=== PATIENT | female | born 1960 | race Caucasian/White ===

== ENCOUNTER 2019-03-05 15:35 | Emergency (ER) | payer OTHER ==
[~2019-03-05] VITALS: Ht 162.6 cm; Wt 82.1 kg
[~2019-03-05 15:35] MED LIST: DILAUDID PUMP; LISI5 PO; MELO7.5 PO; MODA200 PO; Macrobid 100 M100 MG PO; VENL25 PO; Xalatan2.5 ML BOTHEYES
[2019-03-05] MEDS ORDERED: CLON1 PO (15:48)
[2019-03-05] MEDS ORDERED: DESV50 PO (15:48)
[2019-03-05] MEDS ORDERED: MONT10T PO (15:48)
[2019-03-05] MEDS ORDERED: IBUP600 PO (17:14)
[2019-03-05] MEDS ORDERED: HYDR1TAB94 PO ×2 (17:14→17:15)
[2019-03-05] MEDS ORDERED: CYCL10 PO (17:14)
[2019-03-05] MEDS ORDERED: Norco 5-325 Ta1 EACH PO ×2 (17:16→17:18)
[2019-03-05] MEDS ORDERED: Percocet 5-3251 EACH PO (17:18)
== END 2019-03-05 17:48 | disposition home or self-care (01) ==
LOC: ER 15:35
DX: S16.1XXA Strain of muscle, fascia and tendon at neck level, initial encounter (principal); S80.02XA Contusion of left knee, initial encounter; V89.2XXA Person injured in unspecified motor-vehicle accident, traffic, initial encounter; Z88.0 Allergy status to penicillin; Z88.1 Allergy status to other antibiotic agents; Z79.899 Other long term (current) drug therapy; I10 Essential (primary) hypertension
CPT/HCPCS: 72040; 73030; 99284-25

== ENCOUNTER 2019-03-08 12:45 | Emergency (ER) | payer OTHER ==
[~2019-03-08] VITALS: Ht 162.6 cm; Wt 86.2 kg
[~2019-03-08 12:45] MED LIST changes: +CLON1 PO; +CYCL10 PO; +DESV50 PO; +HYDR1TAB94 PO; +IBUP600 PO; +MONT10T PO; +Norco 5-325 Ta1 EACH PO; +Percocet 5-3251 EACH PO
[2019-03-08 14:46] LABS: Source, Urine Clean Catch
[2019-03-08 14:55] LABS: Appearance, Urine Clear (Clear); Bilirubin, Urine Neg (Neg); Blood, Urine Neg (Neg); Color, Urine Yellow (P-Yellow); Glucose Qualitative, Urine Neg (Neg); Ketones, Urine Neg (Neg); Leukocyte Esterase, Urine 1+ (Neg); Nitrite, Urine Neg (Neg); Protein, Urine Neg (Neg); Specific Gravity, Urine 1.015 (1.003-1.022); Urobilinogen, Urine NORM (Normal); pH, Urine 6.5 (5.0-8.0)
[2019-03-08 15:03] LABS: Bacteria Not Seen /hpf; Red Blood Cells, Urine Not Seen /hpf (0-2); Squamous Epithelial Cells Few /hpf (Few); White Blood Cells, Urine 0-2 /hpf (0-5)
[2019-03-08 15:24] LABS: Base Excess Venous 6.1 mmol/L; Bicarbonate Venous 28.8 mmol/L (24.0-30.0); PCO2 Venous 50.2 mmHg (38-42); PO2 Venous 57.2 mmHg (38-42)
[2019-03-08 15:27] LABS: BASOPHILS ABSOLUTE AUTO 0.05 K/mm3 (0.00-0.23); BASOPHILS PERCENT AUTO 1 % (0-2); EOSINOPHILS PERCENT AUTO 1 % (0-6); Hematocrit 37.7 % (33.0-51.0); IMMATURE GRAN ABSOLUTE AUTO 0.02 K/mm3 (0.00-0.10); IMMATURE GRAN PERCENT AUTO 0 % (0-1); LYMPHOCYTES ABSOLUTE AUTO 2.15 K/mm3 (0.84-5.20); LYMPHOCYTES PERCENT AUTO 30 % (21-46); MONOCYTES ABSOLUTE AUTO 0.53 K/mm3 (0.16-1.47); MONOCYTES PERCENT AUTO 8 % (4-13); Mean Corpuscular HGB 30.5 pg (26.0-34.0); Mean Corpuscular HGB Conc 31.8 g/dL (31.5-36.5); Mean Corpuscular Volume 96 fL (80-100); Mean Platelet Volume 8.9 fL (9.1-12.4); NEUTROPHILS ABSOLUTE AUTO 4.25 K/mm3 (1.96-9.15); NEUTROPHILS PERCENT AUTO 60 % (41-73); Platelet Count 288 K/mm3 (150-400); RDW Standard Deviation 42.2 fL (35.1-46.3); Red Blood Cell Count 3.93 M/mm3 (3.80-5.20)
[2019-03-08 16:23] LABS: Alanine Aminotransfer (ALT/SGP 25 U/L (12-78); Alk Phos 74 U/L (50-136); Anion Gap 4 mmol/L (6-16); Aspartate Aminotrans (AST/SGOT 17 U/L (12-37); Bilirubin, Total 0.6 mg/dL (0.1-1.0); Blood Urea Nitrogen 18 mg/dL (8-24); Bun/Creatinine Ratio 29.8 (12.0-20.0); CO2, Blood 29 mmol/L (21-32); Calcium, Blood 9.6 mg/dL (8.5-10.1); Chloride, Blood 105 mmol/L (98-108); Globulin, Blood 3.9 g/dL (2.2-4.0); Glomerular Filtration Rate >60 (60-); Glucose, Blood 90 mg/dL (70-99); Potassium, Blood 4.2 mmol/L (3.5-5.5); Sodium, Blood 138 mmol/L (136-145); Total Protein, Blood 7.9 g/dL (6.4-8.2)
== END 2019-03-08 17:20 | disposition home or self-care (01) ==
LOC: ER 12:45
PROVIDERS: Emergency Medicine
DX: R55 Syncope and collapse (principal); R06.89 Other abnormalities of breathing; G89.29 Other chronic pain; G47.30 Sleep apnea, unspecified; R40.0 Somnolence; I10 Essential (primary) hypertension; Z88.0 Allergy status to penicillin; Z88.1 Allergy status to other antibiotic agents; Z79.899 Other long term (current) drug therapy
CPT/HCPCS: 36415; 70450; 70491; 71046; 80053; 81001; 82803; 85025; 87086; 93005; 93010; J7030; Q9967

== ENCOUNTER 2020-10-01 07:09 | Day surgery (SDC) | payer OTHER ==
[~2020-10-01] VITALS: Ht 162.6 cm; Wt 90.1 kg
[~2020-10-01 07:09] MED LIST changes: +ACET500 PO; +ASPI81CH PO; +Acetaminophen650 M1 PO; +Aspir 8181 MG PO; +BRIMONIDINE TART5 M2; +CO Q10100 MG PO; +HYDHCL25 PO; +HYDPAM25 PO; +IBU800 M1 PO; +IBUP800 PO; +LATA.005SO BOTHEYES; +LATANOPROST2.5 M1 BOTHEYES; +LISI20 PO; +Loratadine10 MG PO; +MONTELUKAST SOD10 M1 PO; +MORP10S PO; +Mobic15 MG PO; +OMEP20ER PO; +ONDA4 PO; +ONDA8 PO; +PROM25 PO; +Pristiq100 MG PO; +TIMDOROPSO BOTHEYES; +TIMO.25OPS BOTHEYES; +ZOCOR20 MG PO
--- NOTE | 2020-10-01 07:49 | NUR ---
History, Chart, Medications and Allergies reviewed before start of procedure. Patient confirms NPO status and agrees with scheduled surgery. Patient States Post-Procedure ride home has been arranged with her sister, Cecilia.
--- NOTE | 2020-10-01 10:24 | NUR ---
PT C/O SORE THROAT. ABLE TO TOLERATED JUICE. DENIES PAIN. DRESSING TO UMBILICAL AREA D&I. NO DRAINAGE.
--- NOTE | 2020-10-01 10:49 | NUR ---
Dressing to procedure site clean, dry, intact with no visible drainage, swelling, erythema or bruising noted. Discharge instructions reviewed with patient. Patient verbalizes understanding. Copy given to patient to take home. Patient States Post-Procedure ride home has been arranged. Discharged via wheelchair to private car for ride home.
== END 2020-10-01 10:45 | disposition home or self-care (01) ==
LOC: ORSCMMR 07:09 → ORD 07:09
PROVIDERS: Surgery
PROC: 0WUF0JZ Supplement Abdominal Wall with Synthetic Substitute, Open Approach (ICD-10-PCS; principal; 2020-10-01 08:30)
DX: K42.0 Umbilical hernia with obstruction, without gangrene (principal); G47.33 Obstructive sleep apnea (adult) (pediatric); F41.8 Other specified anxiety disorders; I10 Essential (primary) hypertension; E78.5 Hyperlipidemia, unspecified; Z79.82 Long term (current) use of aspirin; Z79.899 Other long term (current) drug therapy
CPT/HCPCS: C1781; J1100; J1885; J2250; J2370; J2405; J2704; J2710; J3010; J7120

== ENCOUNTER → 2021-07-14 | Outpatient (CLI) | payer OTHER ==
[2021-07-19 14:08] LABS: HPV 16 Negative (Negative); HPV 18 Negative (Negative); HPV OTHER HR TYPES Negative (Negative)
== END | disposition home or self-care (01) ==
LOC: LAB SHORT 13:15 → LAB 13:15
PROVIDERS: Nurse Practitioner Family
DX: Z01.419 Encounter for gynecological examination (general) (routine) without abnormal findings (principal)
CPT/HCPCS: 87624; G0123

== ENCOUNTER 2022-01-08 11:16 | Emergency (ER) | payer OTHER ==
[~2022-01-08] VITALS: Ht 162.6 cm; Wt 83.9 kg
[~2022-01-08 11:16] MED LIST changes: -NAPR500EC PO; -ONDA4ODT MM; -PROM12.5S PR; -SULTRIDS PO
[2022-01-08 12:02] LABS: BASOPHILS ABSOLUTE AUTO 0.07 K/mm3 (0.00-0.23); BASOPHILS PERCENT AUTO 1 % (0-2); EOSINOPHILS ABSOLUTE AUTO 0.07 K/mm3 (0.00-0.68); EOSINOPHILS PERCENT AUTO 1 % (0-6); Hematocrit 39.9 % (33.0-51.0); Hemoglobin 13.5 g/dL (11.5-16.0); IMMATURE GRAN ABSOLUTE AUTO 0.03 K/mm3 (0.00-0.10); IMMATURE GRAN PERCENT AUTO 0 % (0-1); LYMPHOCYTES ABSOLUTE AUTO 2.21 K/mm3 (0.84-5.20); LYMPHOCYTES PERCENT AUTO 19 % (21-46); MONOCYTES ABSOLUTE AUTO 0.69 K/mm3 (0.16-1.47); MONOCYTES PERCENT AUTO 6 % (4-13); Mean Corpuscular HGB 31.2 pg (26.0-34.0); Mean Corpuscular HGB Conc 33.8 g/dL (31.5-36.5); Mean Corpuscular Volume 92 fL (80-100); Mean Platelet Volume 8.5 fL (9.1-12.4); NEUTROPHILS ABSOLUTE AUTO 8.69 K/mm3 (1.96-9.15); NEUTROPHILS PERCENT AUTO 74 % (41-73); Platelet Count 349 K/mm3 (150-400); RDW Coefficient Variation 12.1 % (11.7-14.2); RDW Standard Deviation 41.3 fL (35.1-46.3); Red Blood Cell Count 4.33 M/mm3 (3.80-5.20); White Blood Cell Count 11.76 K/mm3 (4.00-11.30)
[2022-01-08 12:19] LABS: Alanine Aminotransfer (ALT/SGP 38 U/L (12-78); Alk Phos 108 U/L (50-136); Anion Gap 7 mmol/L (6-16); Aspartate Aminotrans (AST/SGOT 17 U/L (12-37); Bilirubin, Total 0.4 mg/dL (0.1-1.0); Blood Urea Nitrogen 17 mg/dL (8-24); Bun/Creatinine Ratio 22.2 (12.0-20.0); CO2, Blood 27 mmol/L (21-32); Calcium, Blood 10.2 mg/dL (8.5-10.1); Chloride, Blood 104 mmol/L (98-108); Creatinine, Blood 0.77 mg/dL (0.40-1.00); Globulin, Blood 4.1 g/dL (2.2-4.0); Glomerular Filtration Rate >60 (60-); Glucose, Blood 124 mg/dL (70-99); Magnesium, Blood 2.3 mg/dL (1.6-2.4); Sodium, Blood 138 mmol/L (136-145); Total Protein, Blood 8.1 g/dL (6.4-8.2)
[2022-01-08 13:53] LABS: Source, Urine Clean Catch
[2022-01-08 13:56] LABS: Bilirubin, Urine Neg (Neg); Blood, Urine Neg (Neg); Glucose Qualitative, Urine Neg (Neg); Ketones, Urine 2+ (Neg); Leukocyte Esterase, Urine 1+ (Neg); Nitrite, Urine Neg (Neg); Protein, Urine 3+ (Neg); Specific Gravity, Urine 1.025 (1.003-1.022); Urobilinogen, Urine 1+ (Normal)
[2022-01-08 14:10] LABS: Appearance, Urine Hazy (Clear); Color, Urine Pale Yellow (P-Yellow)
[2022-01-08 14:11] LABS: Amorphous Light (0-Heavy); Bacteria Mod /hpf; Mucus Heavy (0-Heavy); Red Blood Cells, Urine 0-2 /hpf (0-2); Squamous Epithelial Cells Few /hpf (Few)
[2022-01-08 14:12] LABS: Calcium Oxalate Crystals Few /hpf
[2022-01-08] MEDS ORDERED: ONDA4ODT MM (16:30)
[2022-01-08] MEDS ORDERED: SULTRIDS PO (16:30)
[2022-01-08] MEDS ORDERED: NAPR500EC PO (16:32)
== END 2022-01-08 17:04 | disposition home or self-care (01) ==
LOC: ER 11:16
PROVIDERS: Physician Assistant
DX: N12 Tubulo-interstitial nephritis, not specified as acute or chronic (principal); G89.29 Other chronic pain; I10 Essential (primary) hypertension; Z85.41 Personal history of malignant neoplasm of cervix uteri; Z79.899 Other long term (current) drug therapy; Z79.82 Long term (current) use of aspirin; Z88.0 Allergy status to penicillin; Z88.1 Allergy status to other antibiotic agents
CPT/HCPCS: 36415; 74176; 80053; 81001; 83735; 85025; 87086; 96374; 96375; 99284-25; A9270; J1170; J2405

== ENCOUNTER → 2022-01-08 | Outpatient (CLI) | payer OTHER ==
[~2022-01-08] MED LIST changes: +NAPR500EC PO; +ONDA4ODT MM; +PROM12.5S PR; +SULTRIDS PO
== END | disposition home or self-care (01) ==
LOC: LAB SHORT 10:15 → LAB 10:15
DX: N39.0 Urinary tract infection, site not specified (principal)
CPT/HCPCS: 87086

== ENCOUNTER 2022-01-10 11:57 | Emergency (ER) | payer OTHER ==
[~2022-01-10] VITALS: Ht 162.6 cm; Wt 81.7 kg
[~2022-01-10 11:57] MED LIST changes: +NAPR500EC PO; +ONDA4ODT MM; +SULTRIDS PO
[2022-01-10 12:42] LABS: BASOPHILS ABSOLUTE AUTO 0.06 K/mm3 (0.00-0.23); BASOPHILS PERCENT AUTO 1 % (0-2); EOSINOPHILS ABSOLUTE AUTO 0.05 K/mm3 (0.00-0.68); EOSINOPHILS PERCENT AUTO 0 % (0-6); Hematocrit 39.6 % (33.0-51.0); Hemoglobin 13.6 g/dL (11.5-16.0); IMMATURE GRAN ABSOLUTE AUTO 0.02 K/mm3 (0.00-0.10); IMMATURE GRAN PERCENT AUTO 0 % (0-1); LYMPHOCYTES ABSOLUTE AUTO 1.99 K/mm3 (0.84-5.20); LYMPHOCYTES PERCENT AUTO 18 % (21-46); MONOCYTES ABSOLUTE AUTO 0.93 K/mm3 (0.16-1.47); MONOCYTES PERCENT AUTO 8 % (4-13); Mean Corpuscular HGB 31.6 pg (26.0-34.0); Mean Corpuscular HGB Conc 34.3 g/dL (31.5-36.5); Mean Corpuscular Volume 92 fL (80-100); Mean Platelet Volume 8.5 fL (9.1-12.4); NEUTROPHILS ABSOLUTE AUTO 8.34 K/mm3 (1.96-9.15); NEUTROPHILS PERCENT AUTO 73 % (41-73); Platelet Count 350 K/mm3 (150-400); RDW Coefficient Variation 12.3 % (11.7-14.2); RDW Standard Deviation 41.3 fL (35.1-46.3); Red Blood Cell Count 4.31 M/mm3 (3.80-5.20); White Blood Cell Count 11.39 K/mm3 (4.00-11.30)
[2022-01-10 13:01] LABS: Albumin, Blood 3.8 g/dL (3.4-5.0); Bilirubin, Total 0.3 mg/dL (0.1-1.0); Bun/Creatinine Ratio 22.7 (12.0-20.0); Creatinine, Blood 1.1 mg/dL (0.40-1.00); Globulin, Blood 3.8 g/dL (2.2-4.0); Potassium, Blood 4.2 mmol/L (3.5-5.5); Total Protein, Blood 7.6 g/dL (6.4-8.2)
[2022-01-10 13:07] LABS: Influenza A, PCR NEGATIVE (NEGATIVE); Influenza B, PCR NEGATIVE (NEGATIVE); Resp Syncytial Virus, PCR NEGATIVE (NEGATIVE); SARS-Cov-2 (COVID-19) PCR, MMC NEGATIVE (NEGATIVE)
[2022-01-10 14:00] LABS: Source, Urine Clean Catch
[2022-01-10 14:13] LABS: Blood, Urine 1+ (Neg); Glucose Qualitative, Urine Neg (Neg); Ketones, Urine 2+ (Neg); Leukocyte Esterase, Urine 1+ (Neg); Nitrite, Urine Neg (Neg); Protein, Urine 2+ (Neg); Urobilinogen, Urine 2+ (Normal)
[2022-01-10 14:23] LABS: Appearance, Urine Hazy (Clear); Color, Urine Pale Yellow (P-Yellow)
[2022-01-10 14:24] LABS: Bilirubin, Urine 2+ (Neg)
[2022-01-10 14:25] LABS: Bacteria Few /hpf; Squamous Epithelial Cells Few /hpf (Few)
[2022-01-10 14:26] LABS: Mucus Mod (0-Heavy)
[2022-01-10] MEDS ORDERED: PROM12.5S PR (19:06)
== END 2022-01-10 19:24 | disposition home or self-care (01) ==
LOC: ER 11:57
PROVIDERS: Physician Assistant; Student in an Organized Health Care Education/Training Program
DX: M54.50 Low back pain, unspecified (principal); G89.29 Other chronic pain; R79.82 Elevated C-reactive protein (CRP); R11.2 Nausea with vomiting, unspecified; Z88.0 Allergy status to penicillin; Z88.1 Allergy status to other antibiotic agents; Z79.82 Long term (current) use of aspirin; Z79.899 Other long term (current) drug therapy; G47.30 Sleep apnea, unspecified; E78.00 Pure hypercholesterolemia, unspecified; I10 Essential (primary) hypertension
CPT/HCPCS: 0241U; 36415; 72158; 80053; 81001; 83605; 85025; 85651; 86141; 87086; 96374; 99284-25; A9579; J1790

== ENCOUNTER 2022-01-15 11:58 | Observation (INO) | payer OTHER ==
[~2022-01-15] VITALS: Ht 162.6 cm; Wt 77.1 kg
[~2022-01-15 11:58] MED LIST changes: +DESVENLAFAXINE100 MG PO; -HYDPAM25 PO; +MOBIC15 MG PO; +PROM12.5S PR; +ZESTRIL40 M1 PO
[2022-01-15 12:29] LABS: BASOPHILS ABSOLUTE AUTO 0.06 K/mm3 (0.00-0.23); BASOPHILS PERCENT AUTO 1 % (0-2); EOSINOPHILS ABSOLUTE AUTO 0.02 K/mm3 (0.00-0.68); EOSINOPHILS PERCENT AUTO 0 % (0-6); Hemoglobin 14.3 g/dL (11.5-16.0); IMMATURE GRAN ABSOLUTE AUTO 0.06 K/mm3 (0.00-0.10); IMMATURE GRAN PERCENT AUTO 1 % (0-1); LYMPHOCYTES ABSOLUTE AUTO 1.98 K/mm3 (0.84-5.20); LYMPHOCYTES PERCENT AUTO 18 % (21-46); MONOCYTES ABSOLUTE AUTO 0.73 K/mm3 (0.16-1.47); MONOCYTES PERCENT AUTO 6 % (4-13); Mean Corpuscular HGB 31.7 pg (26.0-34.0); Mean Corpuscular HGB Conc 34.9 g/dL (31.5-36.5); Mean Corpuscular Volume 91 fL (80-100); Mean Platelet Volume 8.4 fL (9.1-12.4); NEUTROPHILS ABSOLUTE AUTO 8.48 K/mm3 (1.96-9.15); NEUTROPHILS PERCENT AUTO 75 % (41-73); Platelet Count 445 K/mm3 (150-400); RDW Coefficient Variation 12.2 % (11.7-14.2); RDW Standard Deviation 40.9 fL (35.1-46.3); Red Blood Cell Count 4.51 M/mm3 (3.80-5.20); White Blood Cell Count 11.33 K/mm3 (4.00-11.30)
[2022-01-15 12:53] LABS: Alanine Aminotransfer (ALT/SGP 28 U/L (12-78); Albumin/Globulin Ratio 0.8 (0.8-1.8); Alk Phos 107 U/L (50-136); Anion Gap 10 mmol/L (6-16); Aspartate Aminotrans (AST/SGOT 21 U/L (12-37); Bilirubin, Total 0.4 mg/dL (0.1-1.0); Blood Urea Nitrogen 19 mg/dL (8-24); Bun/Creatinine Ratio 21.2 (12.0-20.0); CO2, Blood 24 mmol/L (21-32); Calcium, Blood 11.1 mg/dL (8.5-10.1); Chloride, Blood 99 mmol/L (98-108); Globulin, Blood 4.9 g/dL (2.2-4.0); Glomerular Filtration Rate >60 (60-); Glucose, Blood 114 mg/dL (70-99); Potassium, Blood 4.3 mmol/L (3.5-5.5); Sodium, Blood 133 mmol/L (136-145); Thyroid Stimulating Hormone 0.285 uIU/mL (0.360-4.800); Total Protein, Blood 8.9 g/dL (6.4-8.2)
[2022-01-15 16:22] LABS: Creatine Kinase MB 2.9 ng/mL (0.0-3.6); Creatine Kinase MB Index 5.9 (0.0-4.0)
--- NOTE | 2022-01-15 18:35 | NUR ---
PATIENT ADMITTED FOR LOWER FLANK PAIN, C/O SEVERE PAIN, N/V. AOX4, INDEPENDENT IN ROOM. NS INFUSING IN LEFT/AC. COMPAZINE GIVEN PRN NAUSEA. LIQUID DIET ORDERED. VITALS STABLE.
--- NOTE | 2022-01-15 23:34 | NUR ---
RESTING QUIETLY. CALL LIGHT IN REACH
--- NOTE | 2022-01-16 05:32 | NUR ---
EXHIBIT ARTIST SUMMARY HAS BEEN RESTING QUIETLY WITH OCCASOINAL INTERRUPTIONS DUE TO PAIN OF BACK. SEE MAR FOR DETAILS WHEN MEDICATED. IVF OF NS INFUSING AT 100 ML/HR. CALL LIGHT IN REACH.
[2022-01-16 08:49] LABS: BASOPHILS ABSOLUTE AUTO 0.03 K/mm3 (0.00-0.23); BASOPHILS PERCENT AUTO 0 % (0-2); EOSINOPHILS PERCENT AUTO 0 % (0-6); Hematocrit 36.7 % (33.0-51.0); Hemoglobin 12.3 g/dL (11.5-16.0); IMMATURE GRAN ABSOLUTE AUTO 0.07 K/mm3 (0.00-0.10); IMMATURE GRAN PERCENT AUTO 1 % (0-1); LYMPHOCYTES ABSOLUTE AUTO 1.97 K/mm3 (0.84-5.20); LYMPHOCYTES PERCENT AUTO 16 % (21-46); MONOCYTES ABSOLUTE AUTO 1.06 K/mm3 (0.16-1.47); MONOCYTES PERCENT AUTO 9 % (4-13); Mean Corpuscular HGB 30.8 pg (26.0-34.0); Mean Corpuscular HGB Conc 33.5 g/dL (31.5-36.5); Mean Corpuscular Volume 92 fL (80-100); Mean Platelet Volume 8.2 fL (9.1-12.4); NEUTROPHILS ABSOLUTE AUTO 9.02 K/mm3 (1.96-9.15); NEUTROPHILS PERCENT AUTO 74 % (41-73); Platelet Count 424 K/mm3 (150-400); RDW Coefficient Variation 12.3 % (11.7-14.2); RDW Standard Deviation 41.6 fL (35.1-46.3); Red Blood Cell Count 3.99 M/mm3 (3.80-5.20); White Blood Cell Count 12.15 K/mm3 (4.00-11.30)
[2022-01-16 09:40] LABS: Alanine Aminotransfer (ALT/SGP 24 U/L (12-78); Albumin, Blood 3.3 g/dL (3.4-5.0); Albumin/Globulin Ratio 0.8 (0.8-1.8); Alk Phos 87 U/L (50-136); Anion Gap 10 mmol/L (6-16); Aspartate Aminotrans (AST/SGOT 15 U/L (12-37); Bilirubin, Total 0.3 mg/dL (0.1-1.0); Blood Urea Nitrogen 22 mg/dL (8-24); Bun/Creatinine Ratio 31.6 (12.0-20.0); CHOL/HDL RATIO 2.9; CO2, Blood 23 mmol/L (21-32); Calcium, Blood 10.3 mg/dL (8.5-10.1); Chloride, Blood 103 mmol/L (98-108); Cholesterol 159 mg/dL (50-200); Globulin, Blood 4.1 g/dL (2.2-4.0); Glomerular Filtration Rate >60 (60-); Glucose, Blood 107 mg/dL (70-99); HDL Cholesterol 54 mg/dL (>39); LDL/HDL RATIO 1.6; Low Density Lipoprotein Chol 85 mg/dL (0-110); Magnesium, Blood 2.1 mg/dL (1.6-2.4); Potassium, Blood 4.3 mmol/L (3.5-5.5); Sodium, Blood 136 mmol/L (136-145); Total Protein, Blood 7.4 g/dL (6.4-8.2); Triglycerides 100 mg/dL (30-160); Very Low Density Lipoprot Chol 20 mg/dL (6-32)
--- NOTE | 2022-01-16 18:17 | NUR ---
Shift Summary Pt has consistent complaints of nausea that are being treated with zofran. Back pain is also present and is now relieving with lidocaine patches and toradol. IV NS @100mls/hr. She is very cooperative and comfortable in bed throughout the day, call light is in reach.
--- NOTE | 2022-01-16 18:51 | NUR ---
SHIFT SUMMARY PT UP TO BATHROOM INDEPENDENTLY. VAGUE ON HOW SHE HAS BEEN TAKING HER MEDS FOR NAUSEA OR PAIN AT HOME. STATES MOST PAIN MID BACK ON EACH SIDE OF HER SPINE. "I THINK ITS WHERE MY KIDNEYS ARE". NAUSEA MINIMAL TODAY AND EATING SMALL AMOUNTS OF CLEAR TO FULL LIQUIDS. LIDOCAINE PATCHES APPLIED TO SITES ON HER BACK TO AID IN PAIN.
[2022-01-17 05:46] LABS: Hematocrit 28.9 % (33.0-51.0); Hemoglobin 9.8 g/dL (11.5-16.0); Mean Corpuscular HGB 31.7 pg (26.0-34.0); Mean Corpuscular HGB Conc 33.9 g/dL (31.5-36.5); Mean Corpuscular Volume 94 fL (80-100); Mean Platelet Volume 8.2 fL (9.1-12.4); Platelet Count 330 K/mm3 (150-400); RDW Coefficient Variation 12.6 % (11.7-14.2); RDW Standard Deviation 43.1 fL (35.1-46.3); Red Blood Cell Count 3.09 M/mm3 (3.80-5.20); White Blood Cell Count 7.88 K/mm3 (4.00-11.30)
[2022-01-17 05:51] LABS: Anion Gap 3 mmol/L (6-16); Blood Urea Nitrogen 21 mg/dL (8-24); Bun/Creatinine Ratio 31.9 (12.0-20.0); CO2, Blood 27 mmol/L (21-32); Calcium, Blood 9.2 mg/dL (8.5-10.1); Chloride, Blood 108 mmol/L (98-108); Creatinine, Blood 0.66 mg/dL (0.40-1.00); Glomerular Filtration Rate >60 (60-); Glucose, Blood 106 mg/dL (70-99); Potassium, Blood 3.9 mmol/L (3.5-5.5); Sodium, Blood 138 mmol/L (136-145)
--- NOTE | 2022-01-17 07:27 | NUR ---
SHIFT SUMMARY PT AOX3. VSS. REPORTS 01/19 MID BACK PAIN, MEDICATED 2X c SCHEDULED TORADOL & 1X c SCHEDULED ROBAXIN, PT STATED PAIN RELIEF. REPORTED ALBERT 08/21, HOWEVER STATED RELIEF AFTER IV TORADOL. DENIES ANY N/V, PT TOLERATED FLUIDS & WAS ABLE TO KEEP LAST NIGHTS DINNER DOWN. ACTIVE BT. REPORTS FEELING "ANXIOUS" ABOUT CURRENT HEALTH SITUATION. CALL LIGHT IN REACH.
[2022-01-17] MEDS ORDERED: REMERON30 M6 PO (13:24)
[2022-01-17] MEDS ORDERED: MORPHINE SULFAT15 M1 PO (13:24)
[2022-01-17] MEDS ORDERED: DORZOLAMIDE-TIM10 ML BOTHEYES (13:27)
[2022-01-17] MEDS ORDERED: ACET500 PO (13:51)
[2022-01-17] MEDS ORDERED: Methocarbamol500 MG PO (13:52)
[2022-01-17] MEDS ORDERED: LIDO700A20 TOP (13:52)
[2022-01-17] MEDS ORDERED: METO5A PO (13:53)
[2022-01-17] MEDS ORDERED: ROXICODONE5 MG PO (13:53)
[2022-01-17] MEDS ORDERED: NAPR500 PO (13:54)
--- NOTE | 2022-01-17 17:15 | NUR ---
DISCHARGE INSTRUCTIONS COMPLETED AND DISCUSSED WITH PT EXPRESSING UNDERSTANDING. SCRIPTS FAXED TO [facility]. TO [facility] VIA W/C.
== END 2022-01-17 17:08 | disposition home or self-care (01) ==
LOC: ER 11:58 → MEDS 11:59 → ER 17:27 → MEDS 17:35
PROVIDERS: Emergency Medicine; ADMIT Internal Medicine
DX: M54.9 Dorsalgia, unspecified (principal); I10 Essential (primary) hypertension; R11.2 Nausea with vomiting, unspecified; R51.9 Headache, unspecified; R94.31 Abnormal electrocardiogram [ECG] [EKG]; Z88.0 Allergy status to penicillin; Z88.1 Allergy status to other antibiotic agents; E78.5 Hyperlipidemia, unspecified; Z97.8 Presence of other specified devices
CPT/HCPCS: 36415; 71045; 76770; 80048; 80053; 80061; 82550; 82553; 83690; 83735; 84439; 84443; 84481; 84484; 85025; 85027; 85651; 86140; 93005; 93010; 93306; 96374; 96375; 99285-25; A9270; J0780; J1170; J1650; J1885; J2405; J2930; J7030

== ENCOUNTER 2022-01-19 21:49 | Inpatient (IN) | payer OTHER ==
[~2022-01-19] VITALS: Ht 167.6 cm; Wt 82.8 kg
[~2022-01-19 21:49] MED LIST changes: +DORZOLAMIDE-TIM10 ML BOTHEYES; +LIDO700A20 TOP; +METO5A PO; +MORPHINE SULFAT15 M1 PO; +Methocarbamol500 MG PO; +NAPR500 PO; +REMERON30 M6 PO; +ROXICODONE5 MG PO
[2022-01-19 23:44] LABS: BASOPHILS ABSOLUTE AUTO 0.08 K/mm3 (0.00-0.23); BASOPHILS PERCENT AUTO 0 % (0-2); EOSINOPHILS ABSOLUTE AUTO 0.04 K/mm3 (0.00-0.68); EOSINOPHILS PERCENT AUTO 0 % (0-6); Hematocrit 28.2 % (33.0-51.0); Hemoglobin 9.6 g/dL (11.5-16.0); IMMATURE GRAN ABSOLUTE AUTO 0.21 K/mm3 (0.00-0.10); IMMATURE GRAN PERCENT AUTO 1 % (0-1); LYMPHOCYTES ABSOLUTE AUTO 2.47 K/mm3 (0.84-5.20); LYMPHOCYTES PERCENT AUTO 14 % (21-46); MONOCYTES ABSOLUTE AUTO 0.81 K/mm3 (0.16-1.47); MONOCYTES PERCENT AUTO 5 % (4-13); Mean Corpuscular Volume 94 fL (80-100); Mean Platelet Volume 9.5 fL (9.1-12.4); NEUTROPHILS ABSOLUTE AUTO 14.35 K/mm3 (1.96-9.15); NEUTROPHILS PERCENT AUTO 80 % (41-73); NRBC ABSOLUTE 0.02 K/mm3 (0.00-0.02); NRBC Auto 0.1 /100 WBC (0.0-0.2); Platelet Count 433 K/mm3 (150-400); RDW Coefficient Variation 12.9 % (11.7-14.2); RDW Standard Deviation 43.5 fL (35.1-46.3); White Blood Cell Count 17.96 K/mm3 (4.00-11.30)
[2022-01-19 23:56] LABS: Alanine Aminotransfer (ALT/SGP 67 U/L (12-78); Albumin, Blood 3.1 g/dL (3.4-5.0); Albumin/Globulin Ratio 0.9 (0.8-1.8); Alk Phos 67 U/L (50-136); Anion Gap 8 mmol/L (6-16); Aspartate Aminotrans (AST/SGOT 53 U/L (12-37); Bilirubin, Total 0.4 mg/dL (0.1-1.0); Blood Urea Nitrogen 55 mg/dL (8-24); CO2, Blood 26 mmol/L (21-32); Calcium, Blood 9.4 mg/dL (8.5-10.1); Chloride, Blood 106 mmol/L (98-108); Globulin, Blood 3.5 g/dL (2.2-4.0); Glomerular Filtration Rate >60 (60-); Glucose, Blood 135 mg/dL (70-99); Magnesium, Blood 2.2 mg/dL (1.6-2.4); Potassium, Blood 4.6 mmol/L (3.5-5.5); Sodium, Blood 140 mmol/L (136-145); Total Protein, Blood 6.6 g/dL (6.4-8.2)
[2022-01-20 00:33] LABS: Influenza A, PCR NEGATIVE (NEGATIVE); Influenza B, PCR NEGATIVE (NEGATIVE); Resp Syncytial Virus, PCR NEGATIVE (NEGATIVE); SARS-Cov-2 (COVID-19) PCR, MMC NEGATIVE (NEGATIVE)
[2022-01-20 02:01] LABS: Source, Urine Clean Catch
[2022-01-20 02:03] LABS: Bilirubin, Urine Neg (Neg); Blood, Urine Neg (Neg); Glucose Qualitative, Urine Neg (Neg); Ketones, Urine Neg (Neg); Leukocyte Esterase, Urine 2+ (Neg); Nitrite, Urine Neg (Neg); Protein, Urine 1+ (Neg); Specific Gravity, Urine 1.015 (1.003-1.022); Urobilinogen, Urine NORM (Normal)
[2022-01-20 02:16] LABS: Appearance, Urine Clear (Clear); Color, Urine Yellow (P-Yellow)
[2022-01-20 02:17] LABS: Bacteria Few /hpf; Red Blood Cells, Urine Not Seen /hpf (0-2); Squamous Epithelial Cells Rare /hpf (Few)
[2022-01-20 05:58] LABS: BASOPHILS ABSOLUTE AUTO 0.03 K/mm3 (0.00-0.23); BASOPHILS PERCENT AUTO 0 % (0-2); EOSINOPHILS ABSOLUTE AUTO 0.04 K/mm3 (0.00-0.68); EOSINOPHILS PERCENT AUTO 0 % (0-6); Hematocrit 22.4 % (33.0-51.0); Hemoglobin 7.4 g/dL (11.5-16.0); IMMATURE GRAN ABSOLUTE AUTO 0.11 K/mm3 (0.00-0.10); IMMATURE GRAN PERCENT AUTO 1 % (0-1); LYMPHOCYTES ABSOLUTE AUTO 3.24 K/mm3 (0.84-5.20); LYMPHOCYTES PERCENT AUTO 25 % (21-46); MONOCYTES ABSOLUTE AUTO 0.74 K/mm3 (0.16-1.47); MONOCYTES PERCENT AUTO 6 % (4-13); Mean Corpuscular HGB 31.2 pg (26.0-34.0); Mean Corpuscular Volume 95 fL (80-100); Mean Platelet Volume 8.4 fL (9.1-12.4); NEUTROPHILS ABSOLUTE AUTO 8.94 K/mm3 (1.96-9.15); NEUTROPHILS PERCENT AUTO 68 % (41-73); Platelet Count 320 K/mm3 (150-400); RDW Coefficient Variation 12.6 % (11.7-14.2); RDW Standard Deviation 42.7 fL (35.1-46.3); Red Blood Cell Count 2.37 M/mm3 (3.80-5.20)
[2022-01-20 06:24] LABS: Anion Gap 5 mmol/L (6-16); Blood Urea Nitrogen 38 mg/dL (8-24); Bun/Creatinine Ratio 74.2 (12.0-20.0); CO2, Blood 28 mmol/L (21-32); Calcium, Blood 8.9 mg/dL (8.5-10.1); Chloride, Blood 108 mmol/L (98-108); Creatinine, Blood 0.51 mg/dL (0.40-1.00); Glomerular Filtration Rate >60 (60-); Glucose, Blood 117 mg/dL (70-99); Potassium, Blood 3.8 mmol/L (3.5-5.5); Sodium, Blood 141 mmol/L (136-145)
[2022-01-20 06:33] LABS: Percent Saturation 41.4 % (15.0-50.0)
--- NOTE | 2022-01-20 06:42 | NUR ---
PM SHIFT SUMMARY PATIENT CAME TO OUR UNIT FROM ED AT 0415. SHE HAD COMPLAINTS OF DIZZYNESS, WEAKNESS AND STATES SHE FELL 4 TIMES AT HOME ON DAY OF ADMISSION. HAS A DILAUDID PUMP FOR CHRONIC LOWER BACK AND ARM PAIN.HER HGB THIS MORNING WAS A7.4, WICH IS DOWN FROM 9.6 ON ADMISSION. SHE ASKED TO BE DNR BUT DOES NOT HAVE ANY ACTUAL ADVANCE DIRECTIVES YET. HER FRIEND IS HER HEALTHCARE PROXY. SHE STATES SHE HAS BEEN IN THE ED 4 TIMES OVER THE LAST 3 WEEKS FOR PAIN AND WEAKNESS.
[2022-01-20 08:33] LABS: Hematocrit 22.9 % (33.0-51.0); Hemoglobin 7.6 g/dL (11.5-16.0)
--- NOTE | 2022-01-20 11:26 | NUR ---
Spiritual Care Visit. Responding to an Advance Directive Info. request. Pt. is awake and in bed. Pt. welcomes my visit. Pt. was displaying evidence of great discomfort, so I offered to return later. Pt. agreed to have me present the material in the AD booklet. Facilitated a life review and rapport was established. Pt. verbalized some relational dysfuction with her family. Listened empathetically. Identified those in her support system. Prayed with pt. Pt. verbalized gratitude for the spiritual care visit.
[2022-01-20 13:36] LABS: Hematocrit 23.4 % (33.0-51.0); Hemoglobin 7.7 g/dL (11.5-16.0)
--- NOTE | 2022-01-20 18:25 | NUR ---
Patient was alert and orient, she stayed in the bed throughout the shift. SHe did not feel comfortable standing or ambulating, stated, "I'm just too weak". Patient was seen by OT/PT but was too weak to participate 100%. Patient complained of pain and did recv PRN Roxicodone. Patient was compliant with medications and had no other complaints. She was continent of bladder and had no BM. A CT scan was done on the Head, Pelvis, and Abdomen. Patient had no further requests at this time. Cont to monitor for her safety.
[2022-01-20 19:08] LABS: Hematocrit 24.1 % (33.0-51.0); Hemoglobin 7.8 g/dL (11.5-16.0)
[2022-01-20 22:58] LABS: Hematocrit 22.6 % (33.0-51.0); Hemoglobin 7.4 g/dL (11.5-16.0)
--- NOTE | 2022-01-21 05:25 | NUR ---
PM SHIFT SUMMARY PATIENT HAD COMPLAINTS OF NAUSEA ONCE DURING SHIFT AND WAS GIVEN ZOFRAN WITH RELIEF OF SYMPTOMS. SHE IS NOW GETTING UP TO THE BEDSIDE COMMODE. SHE DOES NEED TO SIT ON THE EDGE OF THE BED FOR A FEW MINUTES BEFORE RISING TO STAND AND PIVOT. SHE HAS AN IMPLANTED DILAUDID PUMP IN HER LLQ FOR CHRONIC BACK PAIN. SHE DOES MENTION SOME BRIEF RIB PAIN FROM HER FALLS WHEN SHE GETS UP TO USE THE COMMODE. SHE HASN'T STATED NEEDING ANYTHING FOR IT DURING THE SHIFT. BOTH HER CT HEAD AND CT ABD SHOWED NO ACUTE PROCESSES.
[2022-01-21 05:48] LABS: BASOPHILS ABSOLUTE AUTO 0.06 K/mm3 (0.00-0.23); BASOPHILS PERCENT AUTO 1 % (0-2); EOSINOPHILS ABSOLUTE AUTO 0.11 K/mm3 (0.00-0.68); EOSINOPHILS PERCENT AUTO 1 % (0-6); Hematocrit 23.7 % (33.0-51.0); Hemoglobin 7.8 g/dL (11.5-16.0); IMMATURE GRAN ABSOLUTE AUTO 0.07 K/mm3 (0.00-0.10); IMMATURE GRAN PERCENT AUTO 1 % (0-1); LYMPHOCYTES ABSOLUTE AUTO 3.98 K/mm3 (0.84-5.20); LYMPHOCYTES PERCENT AUTO 37 % (21-46); MONOCYTES ABSOLUTE AUTO 0.71 K/mm3 (0.16-1.47); MONOCYTES PERCENT AUTO 7 % (4-13); Mean Corpuscular HGB 31.3 pg (26.0-34.0); Mean Corpuscular HGB Conc 32.9 g/dL (31.5-36.5); Mean Corpuscular Volume 95 fL (80-100); Mean Platelet Volume 8.3 fL (9.1-12.4); NEUTROPHILS ABSOLUTE AUTO 5.88 K/mm3 (1.96-9.15); NEUTROPHILS PERCENT AUTO 54 % (41-73); Platelet Count 387 K/mm3 (150-400); RDW Standard Deviation 44.8 fL (35.1-46.3); Red Blood Cell Count 2.49 M/mm3 (3.80-5.20); White Blood Cell Count 10.81 K/mm3 (4.00-11.30)
[2022-01-21 06:28] LABS: Alanine Aminotransfer (ALT/SGP 94 U/L (12-78); Albumin, Blood 3.2 g/dL (3.4-5.0); Albumin/Globulin Ratio 0.9 (0.8-1.8); Alk Phos 78 U/L (50-136); Anion Gap 7 mmol/L (6-16); Aspartate Aminotrans (AST/SGOT 54 U/L (12-37); Bilirubin, Total 0.3 mg/dL (0.1-1.0); Blood Urea Nitrogen 18 mg/dL (8-24); CO2, Blood 29 mmol/L (21-32); Calcium, Blood 9.7 mg/dL (8.5-10.1); Chloride, Blood 107 mmol/L (98-108); Creatinine, Blood 0.56 mg/dL (0.40-1.00); Globulin, Blood 3.5 g/dL (2.2-4.0); Glomerular Filtration Rate >60 (60-); Glucose, Blood 110 mg/dL (70-99); Potassium, Blood 3.7 mmol/L (3.5-5.5); Sodium, Blood 143 mmol/L (136-145); Total Protein, Blood 6.7 g/dL (6.4-8.2)
[2022-01-21] MEDS ORDERED: REMERON30 M6 (07:20)
[2022-01-21 09:26] LABS: Stool Occult Blood Guaiac 1 Pos (Neg)
--- NOTE | 2022-01-21 18:18 | NUR ---
SHIFT SUMMARY; PATIENT REMAINS IN BED THROUGHOUT THE DAY ONLY GETTING UP TO BATHROOM ONCE AND TO BEDSIDE COMMODE X 2. SHE IS FORGETFUL AND DOES NOT USE CALL LIGHT WHEN SHE HAS WANTS OR NEEDS. HER BED ALARM IS IN PLACE AND GARRET IS FOUND TO BE SETTING UP ON EDGE OF BED WITH ALARM ACTIVATED. ATTEMPTS TO REORIENT HER AND EXPLAIN NECESSITY FOR USING CALL LIGHT ARE MET WITH COOPERATIVE COMMENTS HOWEVER CHIQUITANET IS NOTED TO BE FORGETFUL WITHIN A SHORT TIME AND ACTIVATES ALARM. PATIENT IS NOTED TO SLEEP THIS AFTERNOON FOR AN EXTENDED PERIOD OF TIME. VITAL SIGNS SHOW SLIGHT HYPERTENSION. SABRINAT ABLE TO TAKE HER MEDICATIONS WHOLE WITH WATER. NO DIFFICULTY EATING OR DRINKING. WILL REMAIN AVAILABLE FOR THIS PATIENT FOR ANY WANTS OR NEEDS THAT COME UP PRIOR TO REPORT TO NOC SHIFT RN.
[2022-01-22 05:07] LABS: BASOPHILS ABSOLUTE AUTO 0.04 K/mm3 (0.00-0.23); BASOPHILS PERCENT AUTO 0 % (0-2); EOSINOPHILS ABSOLUTE AUTO 0.14 K/mm3 (0.00-0.68); EOSINOPHILS PERCENT AUTO 1 % (0-6); Hematocrit 21.9 % (33.0-51.0); Hemoglobin 7.1 g/dL (11.5-16.0); IMMATURE GRAN PERCENT AUTO 1 % (0-1); LYMPHOCYTES ABSOLUTE AUTO 3.74 K/mm3 (0.84-5.20); LYMPHOCYTES PERCENT AUTO 36 % (21-46); MONOCYTES ABSOLUTE AUTO 0.82 K/mm3 (0.16-1.47); MONOCYTES PERCENT AUTO 8 % (4-13); Mean Corpuscular HGB 31.1 pg (26.0-34.0); Mean Corpuscular HGB Conc 32.4 g/dL (31.5-36.5); Mean Corpuscular Volume 96 fL (80-100); Mean Platelet Volume 8.3 fL (9.1-12.4); NEUTROPHILS ABSOLUTE AUTO 5.45 K/mm3 (1.96-9.15); NEUTROPHILS PERCENT AUTO 53 % (41-73); NRBC ABSOLUTE 0.03 K/mm3 (0.00-0.02); NRBC Auto 0.3 /100 WBC (0.0-0.2); Platelet Count 377 K/mm3 (150-400); RDW Standard Deviation 44.4 fL (35.1-46.3); Red Blood Cell Count 2.28 M/mm3 (3.80-5.20); White Blood Cell Count 10.29 K/mm3 (4.00-11.30)
[2022-01-22 05:51] LABS: Anion Gap 7 mmol/L (6-16); Blood Urea Nitrogen 13 mg/dL (8-24); Bun/Creatinine Ratio 20.9 (12.0-20.0); CO2, Blood 28 mmol/L (21-32); Calcium, Blood 9.6 mg/dL (8.5-10.1); Chloride, Blood 108 mmol/L (98-108); Creatinine, Blood 0.62 mg/dL (0.40-1.00); Glomerular Filtration Rate >60 (60-); Glucose, Blood 112 mg/dL (70-99); Potassium, Blood 3.5 mmol/L (3.5-5.5); Sodium, Blood 143 mmol/L (136-145)
--- NOTE | 2022-01-22 06:33 | NUR ---
SHIFT SUMMARY: PT REMAINED A/0X3 DISORIENTED TO TIME DURING SHIFT. AMBULATED SEVERAL TIMES TO THE BATHROOM, STEADY ON FEET STANDBY ASSIST. PT CALLS APPROPRIATELY, BED ALARM ACTIVATED, CALL KNAPP IN REACH, BED IN LOWEST POSITION. CONTINUOUS O2 MONITORING DUE TO DECLINING TO WEAR CPAP- O2 STABLE THROUGHOUT SHIFT
[2022-01-22 08:08] LABS: IMMATURE RETIC FRACTION 30.5 % (2.3-16.0); RETIC HGB EQUIVALENT 39.2 pg (28.20-36.60); RETICULOCYTE COUNT PERCENT 3.37 % (0.50-2.50)
[2022-01-22 08:44] LABS: Hematocrit 21.7 % (33.0-51.0); Hemoglobin 7.2 g/dL (11.5-16.0)
[2022-01-22 15:35] LABS: Hematocrit 21.6 % (33.0-51.0); Hemoglobin 7.3 g/dL (11.5-16.0)
--- NOTE | 2022-01-22 17:19 | NUR ---
SHIFT SUMMARY; PATIENT HAD RESTFUL DAY. ONLY GETTING UP FROM BED TO AMBULATE TOO AND FROM BATHROOM. THIS RN AND MONROE GLEASON II HAVE ASKED HER TO GET UP IN CHAIR FOR MEALS WITHOUT MUCH SUCCESS. PATIENT EXPRESSES THAT SHE IS IN TOO MUCH PAIN AFTER HER FALL AT HOME AND CANNOT SIT FOR VERY LONG. SHE IS MEDICATED X 1 WITH OXYCODONE FOR PAIN THAT IS NOT CONTROLLED WITH HER DILAUDID PUMP. CURRENTLY SHE IS RESTING COMFORTABLY EYES CLOSED NADN. SHE RECEIVED AN ULTRASOUND OF HER KIDNEYS AND BLADDER PER ORDER TODAY. PLAN IS FOR HER TO HAVE A GI CONSULT IN THE AM TOMORROW. SHE IS NOTED TO HAVE HARD BLACK TARRY STOOLS AND APPEARS CONSTIPATED. PATIENT IS AO X 4 TODAY, SHE DOES SAY THAT SHE IS HAVING DIFFICULTY WITH HER MEMORY AND FEELS LIKE SHE IS HAVING DIFFICULTY FINDING THE RIGHT WORDS FOR WHAT SHE WANTS TO SAY. WILL REMAIN AVAILABLE FOR THIS PATIENT FOR ANY WANTS OR NEEDS UNTIL HAND OFF AND REPORT AT SHIFT CHANGE.
[2022-01-23 04:44] LABS: BASOPHILS ABSOLUTE AUTO 0.06 K/mm3 (0.00-0.23); BASOPHILS PERCENT AUTO 1 % (0-2); EOSINOPHILS ABSOLUTE AUTO 0.13 K/mm3 (0.00-0.68); EOSINOPHILS PERCENT AUTO 1 % (0-6); Hematocrit 25.2 % (33.0-51.0); Hemoglobin 8.3 g/dL (11.5-16.0); IMMATURE GRAN ABSOLUTE AUTO 0.08 K/mm3 (0.00-0.10); IMMATURE GRAN PERCENT AUTO 1 % (0-1); LYMPHOCYTES ABSOLUTE AUTO 3.38 K/mm3 (0.84-5.20); LYMPHOCYTES PERCENT AUTO 33 % (21-46); MONOCYTES ABSOLUTE AUTO 0.79 K/mm3 (0.16-1.47); MONOCYTES PERCENT AUTO 8 % (4-13); Mean Corpuscular HGB 31.8 pg (26.0-34.0); Mean Corpuscular HGB Conc 32.9 g/dL (31.5-36.5); Mean Corpuscular Volume 97 fL (80-100); Mean Platelet Volume 8.3 fL (9.1-12.4); NEUTROPHILS ABSOLUTE AUTO 5.85 K/mm3 (1.96-9.15); NEUTROPHILS PERCENT AUTO 57 % (41-73); NRBC ABSOLUTE 0.03 K/mm3 (0.00-0.02); NRBC Auto 0.3 /100 WBC (0.0-0.2); Platelet Count 427 K/mm3 (150-400); RDW Coefficient Variation 13.3 % (11.7-14.2); RDW Standard Deviation 44.9 fL (35.1-46.3); Red Blood Cell Count 2.61 M/mm3 (3.80-5.20); White Blood Cell Count 10.29 K/mm3 (4.00-11.30)
--- NOTE | 2022-01-23 04:52 | NUR ---
SHIFT SUMMARY PATIENT PLEASANT ALERT WITH SOME CONFUSION AT TIME C/O PAIN TO HER LEFT RIB CAGE NO SWELLING OR BRUISING NOTED TENDER TO TOUCH PATIENT HAD RECENT FALL AT HOME PRN OXYCODEN ADM WITH RELIEF.PT ABLE TO AMBULATE TO BATHROOM WITH STANDBY ASSISST.SAFETY MAINTAINED CALL LIGHT WITH REACH .
[2022-01-23 05:05] LABS: Anion Gap 7 mmol/L (6-16); Blood Urea Nitrogen 11 mg/dL (8-24); Bun/Creatinine Ratio 16.9 (12.0-20.0); CO2, Blood 28 mmol/L (21-32); Chloride, Blood 107 mmol/L (98-108); Creatinine, Blood 0.65 mg/dL (0.40-1.00); Glomerular Filtration Rate >60 (60-); Glucose, Blood 119 mg/dL (70-99); Potassium, Blood 3.7 mmol/L (3.5-5.5); Sodium, Blood 142 mmol/L (136-145)
--- NOTE | 2022-01-23 18:22 | NUR ---
RECEIVED REPORT FROM OUTGOING NURSE. PATIENT IN BED ALERT AND ORIENTED. PATIENT WAS IN SOME PAIN AND DISCOMFORT THIS MORNING PRN'S PROVIDED (SEE MAR). PATIENT'S PAIN AND DISCOMFORT IMPROVED WITH SCHEDULED LIDOCANE PATCH AND PRN ZOFRAN. PATIENT ALERT AND ORIENTED DURING REPORTING TIME AND CONTINUES TO BE ON TELE AND CONT PULS OX. WILL REPORT TO RN UPON REPORTING TIME.
[2022-01-24 00:43] LABS: Influenza A, PCR NEGATIVE (NEGATIVE); Influenza B, PCR NEGATIVE (NEGATIVE); Resp Syncytial Virus, PCR NEGATIVE (NEGATIVE); SARS-Cov-2 (COVID-19) PCR, MMC NEGATIVE (NEGATIVE)
--- NOTE | 2022-01-24 04:50 | NUR ---
SHIFT SUMMARY PATIENT REMAIN ALERT AND ORIENTED C/O PAIN X 1 TO HER BACK PRN OXYCODEN ADM WITH RELIEF.PT WAS SEEN BY GI DOCTOR THIS NIGHT NEW ORDER ONLY ICE AND WATER,COVID TEST DONE REUSLTS NEGATIVE FOR ENDOSCOPY TODAY PT AWARE.NO ACUTE CHANGE NOTED
[2022-01-24 05:44] LABS: BASOPHILS ABSOLUTE AUTO 0.05 K/mm3 (0.00-0.23); BASOPHILS PERCENT AUTO 1 % (0-2); EOSINOPHILS ABSOLUTE AUTO 0.13 K/mm3 (0.00-0.68); EOSINOPHILS PERCENT AUTO 2 % (0-6); Hematocrit 22.3 % (33.0-51.0); Hemoglobin 7.3 g/dL (11.5-16.0); IMMATURE GRAN ABSOLUTE AUTO 0.07 K/mm3 (0.00-0.10); IMMATURE GRAN PERCENT AUTO 1 % (0-1); LYMPHOCYTES ABSOLUTE AUTO 3.12 K/mm3 (0.84-5.20); LYMPHOCYTES PERCENT AUTO 36 % (21-46); MONOCYTES ABSOLUTE AUTO 0.77 K/mm3 (0.16-1.47); MONOCYTES PERCENT AUTO 9 % (4-13); Mean Corpuscular HGB 32.2 pg (26.0-34.0); Mean Corpuscular HGB Conc 32.7 g/dL (31.5-36.5); Mean Corpuscular Volume 98 fL (80-100); Mean Platelet Volume 8.2 fL (9.1-12.4); NEUTROPHILS ABSOLUTE AUTO 4.59 K/mm3 (1.96-9.15); NEUTROPHILS PERCENT AUTO 53 % (41-73); Platelet Count 425 K/mm3 (150-400); RDW Coefficient Variation 14.2 % (11.7-14.2); RDW Standard Deviation 46.2 fL (35.1-46.3); Red Blood Cell Count 2.27 M/mm3 (3.80-5.20); White Blood Cell Count 8.73 K/mm3 (4.00-11.30)
--- NOTE | 2022-01-24 16:05 | NUR ---
01/24/22 1605 Radha Duran History, Chart, Medications and Allergies reviewed before start of procedure. Patient confirms NPO status and agrees with scheduled surgery. 3-LEAD EKG REVIEWED WITH PHYSICIAN PRIOR TO START OF PROCEDURE. MONITOR INTACT WITH CONTINUOUS PULSE OXIMETRY AND INTERMITTENT BP. PATIENT DETERMINED TO BE ASA APPROPRIATE FOR PROPOFOL SEDATION PRIOR TO START OF PROCEDURE BY
--- NOTE | 2022-01-24 16:39 | NUR ---
PREPROCEDURE PT INTO SDS VIA SNOW FROM [facility]. PT A&O X3. Lungs clear T/O to Auscultation. Patient confirms NPO status and agrees with scheduled surgery.IV ACCESS TO LEFT AC PATENT, FLUSHES WELL AND INFUSING. AFTER REVIEWING CHART PT FITS CRITERIA FOR NURSE SEDATION INSTEAD OF MAC
--- NOTE | 2022-01-24 18:26 | NUR ---
PATIENT ALERT AND ORIENTED X3-4. PATIENT HAD LOWER BACK PAIN TODAY PRN OXY GIVEN WITH RELIEF. PATIENT TAKEN DOWN TO SAME DAY SURGERY AROUND 3PM. PATIENT RETURNED TO ROOM AROUND 5:45PM. SAME DAY UNABLE TO PLACE IV AND STAFF WILL HAVE TO PLACE A POWERGLIDE ON PATIENT FOR TOMORROW'S PROCEDURE. . RECEIVED VERBAL ORDERS FROM PROCEDURE NURSE WHO STATED THAT GI DOC WANTED RN TO PLACE ORDERS FOR PATIENT TO ONLY HAVE WATER AND ICE AFTER MIDNIGHT AND NPO AFTER 11 AM TOMORROW 01/25/2022. ORDERS PLACED. PATIENT IN ROOM EATING DINNER DURING REPORTING TIME.
--- NOTE | 2022-01-25 04:51 | NUR ---
SHIFT SUMMARY ALERT ORIENTED X 3 ABLE TO VOICE NEEDS C/O PAIN TO HER BACK OXYCODEN ADM WITH RELIEF LUNGS SOUND CLEAR EMY NO SOB NOTED CALM MOOD PT ON ICE AND WATER FROM MIDNIGHT AND NPO FROM 11AM TODAY FOR PROCEDURE PT AWARE OF THIS .POWERGLIDE TO BE REPLACED THIS MORNING
[2022-01-25 05:09] LABS: BASOPHILS ABSOLUTE AUTO 0.06 K/mm3 (0.00-0.23); BASOPHILS PERCENT AUTO 1 % (0-2); EOSINOPHILS ABSOLUTE AUTO 0.13 K/mm3 (0.00-0.68); EOSINOPHILS PERCENT AUTO 2 % (0-6); Hematocrit 23.3 % (33.0-51.0); Hemoglobin 7.4 g/dL (11.5-16.0); IMMATURE GRAN ABSOLUTE AUTO 0.03 K/mm3 (0.00-0.10); IMMATURE GRAN PERCENT AUTO 0 % (0-1); LYMPHOCYTES ABSOLUTE AUTO 2.94 K/mm3 (0.84-5.20); LYMPHOCYTES PERCENT AUTO 38 % (21-46); MONOCYTES ABSOLUTE AUTO 0.72 K/mm3 (0.16-1.47); MONOCYTES PERCENT AUTO 9 % (4-13); Mean Corpuscular HGB 31.5 pg (26.0-34.0); Mean Corpuscular HGB Conc 31.8 g/dL (31.5-36.5); Mean Corpuscular Volume 99 fL (80-100); Mean Platelet Volume 8.2 fL (9.1-12.4); NEUTROPHILS ABSOLUTE AUTO 3.97 K/mm3 (1.96-9.15); NEUTROPHILS PERCENT AUTO 50 % (41-73); Platelet Count 409 K/mm3 (150-400); RDW Coefficient Variation 14.7 % (11.7-14.2); RDW Standard Deviation 47.7 fL (35.1-46.3); Red Blood Cell Count 2.35 M/mm3 (3.80-5.20); White Blood Cell Count 7.85 K/mm3 (4.00-11.30)
--- NOTE | 2022-01-25 16:35 | NUR ---
01/25/22 1635 Luis Zheng PATIENT DETERMINED TO BE ASA APPROPRIATE FOR PROPOFOL SEDATION PRIOR TO START OF PROCEDURE BY DR. RIVERA Bite Block Placed 3-LEAD EKG REVIEWED WITH PHYSICIAN PRIOR TO START OF PROCEDURE. Patient to ENDO 1 History, Chart, Medications and Allergies reviewed before start of procedure. MONITOR INTACT WITH CONTINUOUS PULSE OXIMETRY AND INTERMITTENT BP. O2 VIA N/C INTACT THROUGHOUT SEDATION/PROCEDURE.
--- NOTE | 2022-01-25 18:41 | NUR ---
PATIENT IS A&OX4. PT HAD EGD DONE THIS AFTERNOON. PATIENT DENIES ANY PAIN. PT IS NOW RESTING COMFORTABLY IN BED. CALL LIGHT PLACED WITHIN REACH.
--- NOTE | 2022-01-26 04:18 | NUR ---
SHIFT SUMMARY PATIENT AOX4 ABLE TO MAKE NEEDS KNOWN POST EGD NO C/O NAUSEA CALM MOOD C/O PAIN TO HER LOWER BACK X 2 OXYC AND WITH RELIEF IV RIGHT F/A FLUSHING WELL.INDEPENDENT WITH TOILETING NO ACUTE CHANGES NOTED .
[2022-01-26 05:14] LABS: BASOPHILS ABSOLUTE AUTO 0.04 K/mm3 (0.00-0.23); BASOPHILS PERCENT AUTO 1 % (0-2); EOSINOPHILS ABSOLUTE AUTO 0.11 K/mm3 (0.00-0.68); EOSINOPHILS PERCENT AUTO 1 % (0-6); Hematocrit 23.3 % (33.0-51.0); Hemoglobin 7.5 g/dL (11.5-16.0); IMMATURE GRAN ABSOLUTE AUTO 0.03 K/mm3 (0.00-0.10); IMMATURE GRAN PERCENT AUTO 0 % (0-1); LYMPHOCYTES ABSOLUTE AUTO 2.37 K/mm3 (0.84-5.20); LYMPHOCYTES PERCENT AUTO 30 % (21-46); MONOCYTES ABSOLUTE AUTO 0.69 K/mm3 (0.16-1.47); MONOCYTES PERCENT AUTO 9 % (4-13); Mean Corpuscular HGB 31.8 pg (26.0-34.0); Mean Corpuscular HGB Conc 32.2 g/dL (31.5-36.5); Mean Corpuscular Volume 99 fL (80-100); Mean Platelet Volume 8.2 fL (9.1-12.4); NEUTROPHILS PERCENT AUTO 59 % (41-73); Platelet Count 449 K/mm3 (150-400); RDW Coefficient Variation 14.7 % (11.7-14.2); RDW Standard Deviation 49.1 fL (35.1-46.3); Red Blood Cell Count 2.36 M/mm3 (3.80-5.20); White Blood Cell Count 7.84 K/mm3 (4.00-11.30)
[2022-01-26 05:39] LABS: Anion Gap 5 mmol/L (6-16); Blood Urea Nitrogen 15 mg/dL (8-24); Bun/Creatinine Ratio 19.5 (12.0-20.0); CO2, Blood 29 mmol/L (21-32); Calcium, Blood 9.8 mg/dL (8.5-10.1); Chloride, Blood 108 mmol/L (98-108); Creatinine, Blood 0.77 mg/dL (0.40-1.00); Glomerular Filtration Rate >60 (60-); Glucose, Blood 105 mg/dL (70-99); Sodium, Blood 142 mmol/L (136-145)
[2022-01-26 12:35] LABS: Hematocrit 25.8 % (33.0-51.0); Hemoglobin 8.7 g/dL (11.5-16.0)
--- NOTE | 2022-01-26 16:56 | NUR ---
DISCHARGE SUMMARY DISCHARGE INSTRUCTIONS WERE EXPLAINED TO PATIENT. ALL QUESTIONS ANSWERED. PT INSTRUCTED TO GO TO FOLLOW UP APPOINTMENT THAT WAS MADE AND WAS TOLD TO CALL IF SHE CANNOT MAKE IT OR NEEDS TO RESCHEDULE. HOME HEALTH WILL FOLLOW UP WITH PATIENT. PT WAS WHEELED OUT VIA WHEELCHAIR W/ PRIMARY NURSE.
== END 2022-01-26 16:44 | disposition home health service (06) | DRG 379 ==
LOC: ER 21:49 → MEDS 21:50
PROVIDERS: Family Medicine; Hospitalist; Internal Medicine Gastroenterology; Student in an Organized Health Care Education/Training Program; ADMIT Family Medicine
PROC: 0DB68ZZ Excision of Stomach, Via Natural or Artificial Opening Endoscopic (ICD-10-PCS; principal; 2022-01-25 16:15)
PROC: 0DB68ZX Excision of Stomach, Via Natural or Artificial Opening Endoscopic, Diagnostic (ICD-10-PCS; 2022-01-25 16:15)
DX: K25.0 Acute gastric ulcer with hemorrhage (principal); Z20.822 Contact with and (suspected) exposure to COVID-19; Z66 Do not resuscitate; D64.9 Anemia, unspecified; K59.00 Constipation, unspecified; D72.829 Elevated white blood cell count, unspecified; R91.1 Solitary pulmonary nodule; H40.9 Unspecified glaucoma; J30.9 Allergic rhinitis, unspecified; F41.1 Generalized anxiety disorder; G47.33 Obstructive sleep apnea (adult) (pediatric); F32.A Depression, unspecified; E11.9 Type 2 diabetes mellitus without complications; K21.9 Gastro-esophageal reflux disease without esophagitis; M54.9 Dorsalgia, unspecified; G89.29 Other chronic pain; I10 Essential (primary) hypertension; E78.5 Hyperlipidemia, unspecified; Z88.0 Allergy status to penicillin; Z88.1 Allergy status to other antibiotic agents; Z79.82 Long term (current) use of aspirin; Z79.899 Other long term (current) drug therapy; Z98.51 Tubal ligation status; Z98.890 Other specified postprocedural states; Z85.41 Personal history of malignant neoplasm of cervix uteri
CPT/HCPCS: 0241U; 36415; 70470; 71045; 71260; 74177; 76770; 80048; 80053; 81001; 82270; 82550; 82607; 82728; 82746; 83010; 83540; 83550; 83605; 83615; 83735; 83880; 84145; 84484; 85014; 85018; 85025; 85045; 87040; 87086; 88305; 88341; 88342; 93005; 93010; 94762; 96365; 96366; 96372; 97110; 97116; 97161; 97166; 97530; 97535; 99285-25; A9270; G0378; J1650; J1956; J2405; J2704; J7120; Q9967

== ENCOUNTER 2022-01-31 09:15 | Inpatient (IN) | payer OTHER ==
[~2022-01-31] VITALS: Ht 162.6 cm; Wt 81.7 kg
[~2022-01-31 09:15] MED LIST changes: +REMERON30 M6
[2022-01-31 10:29] LABS: BASOPHILS ABSOLUTE AUTO 0.03 K/mm3 (0.00-0.23); BASOPHILS PERCENT AUTO 0 % (0-2); EOSINOPHILS ABSOLUTE AUTO 0.01 K/mm3 (0.00-0.68); EOSINOPHILS PERCENT AUTO 0 % (0-6); Hematocrit 25.6 % (33.0-51.0); Hemoglobin 8.3 g/dL (11.5-16.0); IMMATURE GRAN ABSOLUTE AUTO 0.02 K/mm3 (0.00-0.10); IMMATURE GRAN PERCENT AUTO 0 % (0-1); LYMPHOCYTES ABSOLUTE AUTO 0.62 K/mm3 (0.84-5.20); LYMPHOCYTES PERCENT AUTO 8 % (21-46); MONOCYTES ABSOLUTE AUTO 0.43 K/mm3 (0.16-1.47); MONOCYTES PERCENT AUTO 6 % (4-13); Mean Corpuscular HGB 31.2 pg (26.0-34.0); Mean Corpuscular HGB Conc 32.4 g/dL (31.5-36.5); Mean Corpuscular Volume 96 fL (80-100); Mean Platelet Volume 8.3 fL (9.1-12.4); NEUTROPHILS ABSOLUTE AUTO 6.28 K/mm3 (1.96-9.15); NEUTROPHILS PERCENT AUTO 85 % (41-73); Platelet Count 385 K/mm3 (150-400); RDW Coefficient Variation 14.3 % (11.7-14.2); RDW Standard Deviation 49.6 fL (35.1-46.3); Red Blood Cell Count 2.66 M/mm3 (3.80-5.20); White Blood Cell Count 7.39 K/mm3 (4.00-11.30)
[2022-01-31 10:47] LABS: Alanine Aminotransfer (ALT/SGP 330 U/L (12-78); Albumin, Blood 3.6 g/dL (3.4-5.0); Albumin/Globulin Ratio 1.2 (0.8-1.8); Alk Phos 364 U/L (50-136); Anion Gap 7 mmol/L (6-16); Aspartate Aminotrans (AST/SGOT 372 U/L (12-37); Bilirubin, Total 1.2 mg/dL (0.1-1.0); Blood Urea Nitrogen 21 mg/dL (8-24); Bun/Creatinine Ratio 34.7 (12.0-20.0); CO2, Blood 27 mmol/L (21-32); Calcium, Blood 9.7 mg/dL (8.5-10.1); Chloride, Blood 108 mmol/L (98-108); Creatinine, Blood 0.61 mg/dL (0.40-1.00); Globulin, Blood 3.1 g/dL (2.2-4.0); Glomerular Filtration Rate >60 (60-); Glucose, Blood 122 mg/dL (70-99); Potassium, Blood 4.2 mmol/L (3.5-5.5); Sodium, Blood 142 mmol/L (136-145); Total Protein, Blood 6.7 g/dL (6.4-8.2)
[2022-01-31] MEDS ORDERED: LATANOPROST2.5 M3 BOTHEYES (18:32)
[2022-01-31] MEDS ORDERED: Simvastatin20 MG (18:32)
[2022-01-31] MEDS ORDERED: Alphagan P5 ML BOTHEYES (18:50)
[2022-01-31] MEDS ORDERED: SENN187 PO (18:51)
[2022-01-31] MEDS ORDERED: LUTEIN20 MG PO (18:52)
[2022-01-31] MEDS ORDERED: SIME80CH PO (18:53)
[2022-01-31] MEDS ORDERED: Preservision A1 EACH PO (18:54)
[2022-01-31] MEDS ORDERED: TRIDERM28.4 GM TOP (21:56)
[2022-01-31] MEDS ORDERED: MORPHINE SULFAT15 M1 PO (21:57)
[2022-01-31] MEDS ORDERED: MODAFINIL200 MG PO (21:58)
[2022-01-31] MEDS ORDERED: MIRT15 PO (21:59)
[2022-01-31] MEDS ORDERED: Methocarbamol500 MG PO (22:01)
[2022-01-31] MEDS ORDERED: MOBIC15 MG PO (22:01)
[2022-01-31] MEDS ORDERED: Hydroxyzine HCl25 MG PO (22:03)
[2022-02-01 05:07] LABS: BASOPHILS ABSOLUTE AUTO 0.03 K/mm3 (0.00-0.23); BASOPHILS PERCENT AUTO 0 % (0-2); EOSINOPHILS ABSOLUTE AUTO 0.01 K/mm3 (0.00-0.68); EOSINOPHILS PERCENT AUTO 0 % (0-6); Hematocrit 24.3 % (33.0-51.0); Hemoglobin 7.7 g/dL (11.5-16.0); IMMATURE GRAN ABSOLUTE AUTO 0.02 K/mm3 (0.00-0.10); IMMATURE GRAN PERCENT AUTO 0 % (0-1); LYMPHOCYTES ABSOLUTE AUTO 1.41 K/mm3 (0.84-5.20); LYMPHOCYTES PERCENT AUTO 17 % (21-46); MONOCYTES ABSOLUTE AUTO 0.58 K/mm3 (0.16-1.47); MONOCYTES PERCENT AUTO 7 % (4-13); Mean Corpuscular HGB Conc 31.7 g/dL (31.5-36.5); Mean Corpuscular Volume 98 fL (80-100); Mean Platelet Volume 8.6 fL (9.1-12.4); NEUTROPHILS ABSOLUTE AUTO 6.29 K/mm3 (1.96-9.15); NEUTROPHILS PERCENT AUTO 75 % (41-73); Platelet Count 369 K/mm3 (150-400); RDW Coefficient Variation 14.3 % (11.7-14.2); RDW Standard Deviation 51.1 fL (35.1-46.3); Red Blood Cell Count 2.48 M/mm3 (3.80-5.20); White Blood Cell Count 8.34 K/mm3 (4.00-11.30)
--- NOTE | 2022-02-01 05:07 | NUR ---
SHIFT SUMMARY A/OX4, IND IN ROOM. C/O EPIGASTRIC PAIN AND NAUSEA. MEDICATED PER EMAR. INDWELLING DIALUDID PAIN PUMP, AWARE. VSS, NO ACUTE CHANGES AT THIS TIME. BED IN LOWEST POSITION WITH CALL LIGHT IN REACH. WILL CONTINUE TO MONITOR AND REPORT TO ONCOMING RN.
[2022-02-01 06:05] LABS: Alanine Aminotransfer (ALT/SGP 239 U/L (12-78); Albumin, Blood 3.2 g/dL (3.4-5.0); Alk Phos 308 U/L (50-136); Anion Gap 7 mmol/L (6-16); Aspartate Aminotrans (AST/SGOT 159 U/L (12-37); Bilirubin, Total 0.4 mg/dL (0.1-1.0); Blood Urea Nitrogen 13 mg/dL (8-24); CO2, Blood 27 mmol/L (21-32); Calcium, Blood 9.3 mg/dL (8.5-10.1); Chloride, Blood 107 mmol/L (98-108); Creatinine, Blood 0.65 mg/dL (0.40-1.00); Globulin, Blood 3.2 g/dL (2.2-4.0); Glomerular Filtration Rate >60 (60-); Glucose, Blood 104 mg/dL (70-99); Magnesium, Blood 1.9 mg/dL (1.6-2.4); Potassium, Blood 3.8 mmol/L (3.5-5.5); Sodium, Blood 141 mmol/L (136-145); Total Protein, Blood 6.4 g/dL (6.4-8.2)
[2022-02-01 06:40] LABS: International Normalized Ratio 1.07; Prothrombin Time Results 11.2 Sec (9.7-11.5)
[2022-02-01 09:33] LABS: Cholesterol 151 mg/dL (50-200); HDL Cholesterol 50 mg/dL (>39); LDL/HDL RATIO 1.6; Low Density Lipoprotein Chol 79 mg/dL (0-110); Triglycerides 111 mg/dL (30-160); Very Low Density Lipoprot Chol 22 mg/dL (6-32)
--- NOTE | 2022-02-01 18:47 | NUR ---
SUMMARY- PT A/O X4, INDEPENDANT TO BATHROOM. VOIDS WITH PERIODS OF STRESS INCONT. IVF LR AT 150/ML HR. PT HAVING ABD PAIN. MEDICATED WITH IV DILAUDID WITH GOOD EFFECT. PT NAUSEATED WITH NARC AND ANTIEMETIC WITH DILAUDID EFFECTIVE. DR ZHONG AT BEDSIDE TO EVAL PT THIS PM, ORDER FOR CLEAR LIQ DIET. HAD BM TODAY. PT STATES LESS DARK AND MORE BROWN, SOFT. LOW, DR DICKEY AWARE (CALLED THIS AM 0930). VSS. NO EVIDENCE OF ACTIVE GI BLEED WITH PRIOR ADMISSION.
[2022-02-02 05:24] LABS: BASOPHILS ABSOLUTE AUTO 0.03 K/mm3 (0.00-0.23); BASOPHILS PERCENT AUTO 0 % (0-2); EOSINOPHILS ABSOLUTE AUTO 0.02 K/mm3 (0.00-0.68); EOSINOPHILS PERCENT AUTO 0 % (0-6); Hematocrit 19.3 % (33.0-51.0); Hemoglobin 6.2 g/dL (11.5-16.0); IMMATURE GRAN ABSOLUTE AUTO 0.03 K/mm3 (0.00-0.10); IMMATURE GRAN PERCENT AUTO 0 % (0-1); LYMPHOCYTES ABSOLUTE AUTO 1.46 K/mm3 (0.84-5.20); LYMPHOCYTES PERCENT AUTO 20 % (21-46); MONOCYTES ABSOLUTE AUTO 0.75 K/mm3 (0.16-1.47); MONOCYTES PERCENT AUTO 10 % (4-13); Mean Corpuscular HGB 31.3 pg (26.0-34.0); Mean Corpuscular HGB Conc 32.1 g/dL (31.5-36.5); Mean Corpuscular Volume 98 fL (80-100); Mean Platelet Volume 8.4 fL (9.1-12.4); NEUTROPHILS ABSOLUTE AUTO 5.07 K/mm3 (1.96-9.15); NEUTROPHILS PERCENT AUTO 69 % (41-73); Platelet Count 256 K/mm3 (150-400); RDW Standard Deviation 48.9 fL (35.1-46.3); Red Blood Cell Count 1.98 M/mm3 (3.80-5.20); White Blood Cell Count 7.36 K/mm3 (4.00-11.30)
[2022-02-02 05:52] LABS: Alanine Aminotransfer (ALT/SGP 119 U/L (12-78); Albumin, Blood 2.5 g/dL (3.4-5.0); Albumin/Globulin Ratio 0.9 (0.8-1.8); Alk Phos 189 U/L (50-136); Anion Gap 4 mmol/L (6-16); Aspartate Aminotrans (AST/SGOT 50 U/L (12-37); Bilirubin, Total 0.5 mg/dL (0.1-1.0); Blood Urea Nitrogen 7 mg/dL (8-24); Bun/Creatinine Ratio 11.9 (12.0-20.0); CO2, Blood 30 mmol/L (21-32); Calcium, Blood 8.8 mg/dL (8.5-10.1); Chloride, Blood 106 mmol/L (98-108); Creatinine, Blood 0.59 mg/dL (0.40-1.00); Globulin, Blood 2.8 g/dL (2.2-4.0); Glomerular Filtration Rate >60 (60-); Glucose, Blood 98 mg/dL (70-99); Potassium, Blood 3.5 mmol/L (3.5-5.5); Sodium, Blood 140 mmol/L (136-145); Total Protein, Blood 5.3 g/dL (6.4-8.2)
--- NOTE | 2022-02-02 06:06 | NUR ---
PT IS A/OX4. SHE HAS BEEN INDEPENDENT IN THE ROOM. RA. NO TELE. CONSULT W/ DR ZHONG YESTERDAY *SEE NOTE*. PT DOES HAVE NEW ACUTE PAIN AND HAS Q6 PRN 1-2 MG OF DILAUDID. SHE HAS THE CALL LIGHT WITHIN REACH AND WE'LL CONTINUE TO MONITOR.
--- NOTE | 2022-02-02 08:00 | NUR ---
pt laying in bed awake a/ox3, pleasant and cooperative with care, follows commands well, states she is a bit foggy, pain is ok as she just had pain meds, lungs are dim t/o, resp even and unlabored, no cough noted, hrr, all ext seem puffy but she states thats her baseline, ppp+2, cap refill <3sec, vs stable, afebrile, piv to rfa and power glide to cristobal, sites are clear and patent, btx4, abd flat soft nontender, voids without diff, skin pale, c/d/i, maew, up ad henrique in room, soraida, call light in reach.
--- NOTE | 2022-02-02 11:38 | NUR ---
pt left via wheelchair for mri.
[2022-02-02 13:21] LABS: Hematocrit 22.5 % (33.0-51.0); Hemoglobin 7.4 g/dL (11.5-16.0)
[2022-02-02 17:06] LABS: Hematocrit 23.6 % (33.0-51.0); Hemoglobin 7.8 g/dL (11.5-16.0)
--- NOTE | 2022-02-02 18:17 | NUR ---
pt has been up ad henrique in room, medicated for pain once, Dr. Yang in to see her, said she can have clear liquids, probably not going to do surgery, for a few days per pt. is tolerating well. call light in reach.
[2022-02-03 05:37] LABS: BASOPHILS ABSOLUTE AUTO 0.02 K/mm3 (0.00-0.23); BASOPHILS PERCENT AUTO 0 % (0-2); EOSINOPHILS ABSOLUTE AUTO 0.07 K/mm3 (0.00-0.68); EOSINOPHILS PERCENT AUTO 1 % (0-6); Hematocrit 20.5 % (33.0-51.0); Hemoglobin 6.6 g/dL (11.5-16.0); IMMATURE GRAN ABSOLUTE AUTO 0.04 K/mm3 (0.00-0.10); IMMATURE GRAN PERCENT AUTO 1 % (0-1); LYMPHOCYTES ABSOLUTE AUTO 1.24 K/mm3 (0.84-5.20); LYMPHOCYTES PERCENT AUTO 20 % (21-46); MONOCYTES ABSOLUTE AUTO 0.59 K/mm3 (0.16-1.47); MONOCYTES PERCENT AUTO 10 % (4-13); Mean Corpuscular HGB 30.3 pg (26.0-34.0); Mean Corpuscular HGB Conc 32.2 g/dL (31.5-36.5); Mean Corpuscular Volume 94 fL (80-100); Mean Platelet Volume 8.5 fL (9.1-12.4); NEUTROPHILS PERCENT AUTO 68 % (41-73); Platelet Count 192 K/mm3 (150-400); RDW Coefficient Variation 15.4 % (11.7-14.2); Red Blood Cell Count 2.18 M/mm3 (3.80-5.20); White Blood Cell Count 6.16 K/mm3 (4.00-11.30)
--- NOTE | 2022-02-03 06:00 | NUR ---
SHIFT SUMMARY: PT IS A/OX4. INDEPENDENT IN ROOM. PT WAS MEDICATED X2 W/ PRN 1MG OF DILAUDID. PT HAS IMPLANTED PAIN PUMP WELL. POWERGLIDE IN FIDELIA INTACT AND INFUSING LR @ 150/INTERMITTENT ABX. SHE IS RA & NO TELE. ABDOMEN IS TENDER TO PALPATION. PT HAS MULTIPLE EYE DROPS IN ROOM. CALL LIGHT IS WITHIN REACH AND WE'LL CONTINUE TO MONITOR.
[2022-02-03 06:01] LABS: Alanine Aminotransfer (ALT/SGP 86 U/L (12-78); Albumin, Blood 2.4 g/dL (3.4-5.0); Albumin/Globulin Ratio 0.8 (0.8-1.8); Alk Phos 154 U/L (50-136); Anion Gap 7 mmol/L (6-16); Aspartate Aminotrans (AST/SGOT 25 U/L (12-37); Bilirubin, Total 0.5 mg/dL (0.1-1.0); Blood Urea Nitrogen 7 mg/dL (8-24); Bun/Creatinine Ratio 12.6 (12.0-20.0); CO2, Blood 29 mmol/L (21-32); Calcium, Blood 8.9 mg/dL (8.5-10.1); Chloride, Blood 106 mmol/L (98-108); Creatinine, Blood 0.56 mg/dL (0.40-1.00); Glomerular Filtration Rate >60 (60-); Glucose, Blood 119 mg/dL (70-99); Potassium, Blood 3.1 mmol/L (3.5-5.5); Sodium, Blood 142 mmol/L (136-145); Total Protein, Blood 5.4 g/dL (6.4-8.2)
[2022-02-03 12:52] LABS: Hematocrit 24.8 % (33.0-51.0); Hemoglobin 8.2 g/dL (11.5-16.0)
--- NOTE | 2022-02-03 14:50 | NUR ---
TRANSFUSED 1 UNIT PRBCS THIS AM, NO REACTIONS OBSERVED, VSS. LABS DRAWN FROM POWERGLIDE TO RECHECK H/H. PT NPO THIS MORNING, AND LEFT FOR SURGERY AT 1400.
[2022-02-03 16:55] LABS: Hematocrit 24.7 % (33.0-51.0); Hemoglobin 8.2 g/dL (11.5-16.0)
--- NOTE | 2022-02-03 18:05 | NUR ---
END OF SHIFT SUMMARY: PT ARRIVED FROM PACU AT 1630, REPORT RECEIVED FROM EVELIO MEDINA. PT ON 3L/O2, LR INFUSING. 4X LAP SITES ON ABD, COVERED WITH STERI-STRIPS CDI. VITALS STABLE, SYSTOLIC BP >170, PRN LABETALOL GIVEN, UNEFFECTIVE. CALLED , LEFT REGARDING PTS PO LISINOPRIL. TITRATING PATIENTS OXYGEN DOWN TO 1.5 LPM. PATIENT FEELING SEDATED, SBA TO BSC. VOIDED U/O 100ML. NOTHING BY MOUTH YET, PT WILL TRY LIQUIDS AT DINNER.
[2022-02-04 05:25] LABS: BASOPHILS ABSOLUTE AUTO 0.01 K/mm3 (0.00-0.23); BASOPHILS PERCENT AUTO 0 % (0-2); EOSINOPHILS PERCENT AUTO 0 % (0-6); Hematocrit 24.1 % (33.0-51.0); IMMATURE GRAN ABSOLUTE AUTO 0.03 K/mm3 (0.00-0.10); IMMATURE GRAN PERCENT AUTO 1 % (0-1); LYMPHOCYTES ABSOLUTE AUTO 0.56 K/mm3 (0.84-5.20); LYMPHOCYTES PERCENT AUTO 10 % (21-46); MONOCYTES ABSOLUTE AUTO 0.45 K/mm3 (0.16-1.47); MONOCYTES PERCENT AUTO 8 % (4-13); Mean Corpuscular HGB 30.3 pg (26.0-34.0); Mean Corpuscular HGB Conc 33.2 g/dL (31.5-36.5); Mean Corpuscular Volume 91 fL (80-100); Mean Platelet Volume 8.7 fL (9.1-12.4); NEUTROPHILS PERCENT AUTO 82 % (41-73); Platelet Count 242 K/mm3 (150-400); RDW Coefficient Variation 14.9 % (11.7-14.2); RDW Standard Deviation 49.6 fL (35.1-46.3); Red Blood Cell Count 2.64 M/mm3 (3.80-5.20); White Blood Cell Count 5.85 K/mm3 (4.00-11.30)
[2022-02-04 05:51] LABS: Alanine Aminotransfer (ALT/SGP 77 U/L (12-78); Albumin, Blood 2.5 g/dL (3.4-5.0); Albumin/Globulin Ratio 0.8 (0.8-1.8); Alk Phos 168 U/L (50-136); Anion Gap 5 mmol/L (6-16); Aspartate Aminotrans (AST/SGOT 27 U/L (12-37); Bilirubin, Total 0.4 mg/dL (0.1-1.0); Blood Urea Nitrogen 9 mg/dL (8-24); Bun/Creatinine Ratio 15.3 (12.0-20.0); CO2, Blood 29 mmol/L (21-32); Chloride, Blood 105 mmol/L (98-108); Creatinine, Blood 0.59 mg/dL (0.40-1.00); Globulin, Blood 3.3 g/dL (2.2-4.0); Glomerular Filtration Rate >60 (60-); Glucose, Blood 130 mg/dL (70-99); Potassium, Blood 3.9 mmol/L (3.5-5.5); Sodium, Blood 139 mmol/L (136-145); Total Protein, Blood 5.8 g/dL (6.4-8.2)
--- NOTE | 2022-02-04 06:09 | NUR ---
PT IS A/OX4. PT IS TOLERATING FULL LIQUID DIET. RA. NO TELE. SBA TO BR; CAN AMBULATE TO BSC INDEPENDENTLY. HER 0500 HGB WAS 8.0 DOWN FROM 8.2. LAP SITES ARE INTACT; PT HAD NO C/O OF PAIN AROUND THE SURGICAL SITES. PT USES CALL LIGHT FOR NEEDS AND WE'LL CONTINUE TO MONITOR.
--- NOTE | 2022-02-04 18:31 | NUR ---
END OF SHIFT SUMMARY: PT OOB, MOVING INDEPEDENTLY IN ROOM. IV FLUIDS D/C, PO MEDS, IV PAIN MEDS D/C'd. 4XLAPS SITES ON ABD, COVERED W/ STERI-STRIPS CDI, SCANT DRIED BLOOD NOTED AT SITES. TOLERATING ORAL INTAKE, ADVANCED TO REGULAR DIET. VSS.
--- NOTE | 2022-02-05 03:52 | NUR ---
SHIFT SUMMARY NO ACUTE CHANGES TO PT CONDITION. PT CONTINUES TO HAVE BACK PAIN AND IS BEING MEDICATED EVERY 4 HOURS FOR PAIN. PT HAD GALLBLADDER SURGERY ON SUNDAY. LAP SITES X 4 ARE CDI. CALL LIGHT IS WITHIN HER REACH. WILL CONTINUE TO MONITOR.
[2022-02-05 05:46] LABS: Hematocrit 24.6 % (33.0-51.0); Mean Corpuscular HGB 30.7 pg (26.0-34.0); Mean Corpuscular HGB Conc 32.5 g/dL (31.5-36.5); Mean Corpuscular Volume 94 fL (80-100); Mean Platelet Volume 8.7 fL (9.1-12.4); Platelet Count 266 K/mm3 (150-400); RDW Coefficient Variation 14.8 % (11.7-14.2); RDW Standard Deviation 50.6 fL (35.1-46.3); Red Blood Cell Count 2.61 M/mm3 (3.80-5.20)
[2022-02-05] MEDS ORDERED: FERSU300 PO (11:03)
--- NOTE | 2022-02-05 13:28 | NUR ---
DISCHARGE SUMMARY: PT DISCHARGED HOME TODAY W/REFERRAL TO HH SERVICES. PT EDUCATED ON MEDICATIONS, DC INSTRUCTIONS AND HOME CARE POST CHOLYSYSTECTOMY. PT VU OF INSTRUCTIONS. WRITTEN SCRIPT FOR OXYCODONE AND LAB DRAW SENT WITH PT. ASSISTED PT WITH PACKING UP BELONGINGS AND SENT WITH PT. PT ESCORTED TO POV IN WC BY CIGARETTE MAKING MACHINE CATCHER WITH SISTER. MEDICATION ORDERS FAXED TO [facility] PER PT REQUEST DESPITE BEING CLOSED TODAY STATING SHE ALREADY HAS MEDICATIONS SHE NEEDS AT HOME.
== END 2022-02-05 13:26 | disposition home health service (06) | DRG 417 ==
LOC: ER 09:15 → ERHOLD 11:57 → MEDS 11:57
PROVIDERS: Family Medicine; Hospitalist; Nurse Practitioner Acute Care; Physician Assistant; Surgery; ADMIT Internal Medicine
PROC: 30233N1 Transfusion of Nonautologous Red Blood Cells into Peripheral Vein, Percutaneous Approach (ICD-10-PCS; 2022-01-31)
PROC: 06HY33Z Insertion of Infusion Device into Lower Vein, Percutaneous Approach (ICD-10-PCS; 2022-01-31)
PROC: BF141ZZ Fluoroscopy of Gallbladder, Bile Ducts and Pancreatic Ducts using Low Osmolar Contrast (ICD-10-PCS; 2022-02-03)
PROC: 0FT44ZZ Resection of Gallbladder, Percutaneous Endoscopic Approach (ICD-10-PCS; principal; 2022-02-03 14:00)
DX: K85.10 Biliary acute pancreatitis without necrosis or infection (principal); K25.4 Chronic or unspecified gastric ulcer with hemorrhage; I46.9 Cardiac arrest, cause unspecified; F11.20 Opioid dependence, uncomplicated; Z66 Do not resuscitate; Z28.21 Immunization not carried out because of patient refusal; G47.33 Obstructive sleep apnea (adult) (pediatric); F32.A Depression, unspecified; E78.5 Hyperlipidemia, unspecified; I10 Essential (primary) hypertension; M54.9 Dorsalgia, unspecified; G89.29 Other chronic pain; D64.9 Anemia, unspecified; Z91.19 Patient's noncompliance with other medical treatment and regimen; Z98.51 Tubal ligation status; Z98.890 Other specified postprocedural states; Z88.0 Allergy status to penicillin; Z88.1 Allergy status to other antibiotic agents; Z79.82 Long term (current) use of aspirin; Z79.899 Other long term (current) drug therapy
CPT/HCPCS: 36415; 36430; 74181; 74300; 76705; 80053; 80061; 83690; 83735; 85014; 85018; 85025; 85027; 85610; 86850; 86900; 86901; 86923; 88304; 93005; 93010; 96365; 96366; 96375; 96376; 99285-25; A9270; C1729; C1751; C9113; J1100; J1170; J1885; J2060; J2250; J2405; J2704; J2710; J2765; J3010; J7030; J7050; J7120; P9016

== ENCOUNTER 2022-03-31 10:25 | Day surgery (SDC) | payer OTHER ==
[~2022-03-31] VITALS: Ht 162.6 cm; Wt 77.4 kg
[~2022-03-31 10:25] MED LIST changes: +Alphagan P5 ML BOTHEYES; +FERSU300 PO; +Hydroxyzine HCl25 MG PO; +LATANOPROST2.5 M3 BOTHEYES; +LUTEIN20 MG PO; +MIRT15 PO; +MODAFINIL200 MG PO; +Preservision A1 EACH PO; +SENN187 PO; +SIME80CH PO; +Simvastatin20 MG; +TRIDERM28.4 GM TOP
--- NOTE | 2022-03-31 11:14 | NUR ---
03/31/22 1114 MIKAYLA BENJAMIN FIRST ONE DONME BY MA MISSED. SECOND ONE DONE BY RN AND WORKED WELL.
== END 2022-03-31 13:55 | disposition home or self-care (01) ==
LOC: ORSCSDS 10:25
PROVIDERS: Internal Medicine Gastroenterology
PROC: 0DJ08ZZ Inspection of Upper Intestinal Tract, Via Natural or Artificial Opening Endoscopic (ICD-10-PCS; principal; 2022-03-31 12:00)
DX: Z87.11 Personal history of peptic ulcer disease (principal); K21.9 Gastro-esophageal reflux disease without esophagitis; I10 Essential (primary) hypertension; G47.33 Obstructive sleep apnea (adult) (pediatric); F32.A Depression, unspecified; Z79.82 Long term (current) use of aspirin; Z79.899 Other long term (current) drug therapy
CPT/HCPCS: J2704; J7120

== ENCOUNTER 2022-09-11 06:13 | Day surgery (SDC) | payer OTHER ==
[~2022-09-11] VITALS: Ht 162.6 cm; Wt 76.8 kg
--- NOTE | 2022-09-11 07:57 | NUR ---
09/11/22 0757 Sanjay Parker LATE ENTRY TIME OUT AND SIGHT CHECK WITH DR BENAVIDES FOR PROCEDURE AT 0740.
--- NOTE | 2022-09-11 08:27 | NUR ---
09/11/22 0827 CLEMENTINA ELLISON REDDENDED RASH NOTED TO RIGHT AXILLA. DR. BA AWARE. 0.05MG OF EPI ADDED TO 10MLS OF ROPIVACAINE 0.5% TO CREATE A LOCAL SOLUTION OF ROPIVACAINE 0.5% WITH EPI 1:200,000. LOCAL POURED ONTO STERILE FIELD FOR USE DURING CASE.
--- NOTE | 2022-09-11 13:05 | NUR ---
09/11/22 1305 Angel Aden PT O2 SATURATION DROPPED TO 83 PRCENT WHILE LYING FLAT FOR X-RAY. SHE WAS GIVEN SUPPLEMENTAL O2 BREIFLY, AND HER SATURATION QUICKLY RETURNED TO NORMAL LIMITS. SHE WAS TRANSFERED TO ROOM AIR, AND HER O2 SATURATION CONTINUED TO STAY WITHIN NORMAL LIMITS UNTIL DISCHARGE.
== END 2022-09-11 12:40 | disposition home or self-care (01) ==
LOC: ORSCSDS 06:13
PROVIDERS: Orthopaedic Surgery
PROC: 0RRJ0JZ Replacement of Right Shoulder Joint with Synthetic Substitute, Open Approach (ICD-10-PCS; principal; 2022-09-11 07:30)
DX: M19.011 Primary osteoarthritis, right shoulder (principal); G47.33 Obstructive sleep apnea (adult) (pediatric); I10 Essential (primary) hypertension; Z79.899 Other long term (current) drug therapy
CPT/HCPCS: 73030; A9270; C1713; C1776; J0171; J1100; J1885; J2250; J2370; J2405; J2704; J2795; J3010; J3370; J7120

== ENCOUNTER → 2022-10-31 | Outpatient (CLI) | payer OTHER ==
[2022-10-31 15:35] LABS: BASOPHILS ABSOLUTE AUTO 0.07 K/mm3 (0.00-0.23); BASOPHILS PERCENT AUTO 1 % (0-2); EOSINOPHILS ABSOLUTE AUTO 0.08 K/mm3 (0.00-0.68); EOSINOPHILS PERCENT AUTO 1 % (0-6); Hematocrit 36.1 % (33.0-51.0); Hemoglobin 12.5 g/dL (11.5-16.0); IMMATURE GRAN ABSOLUTE AUTO 0.02 K/mm3 (0.00-0.10); IMMATURE GRAN PERCENT AUTO 0 % (0-1); LYMPHOCYTES ABSOLUTE AUTO 1.66 K/mm3 (0.84-5.20); LYMPHOCYTES PERCENT AUTO 24 % (21-46); MONOCYTES ABSOLUTE AUTO 0.63 K/mm3 (0.16-1.47); MONOCYTES PERCENT AUTO 9 % (4-13); Mean Corpuscular HGB 31.4 pg (26.0-34.0); Mean Corpuscular HGB Conc 34.6 g/dL (31.5-36.5); Mean Corpuscular Volume 91 fL (80-100); Mean Platelet Volume 8.7 fL (9.1-12.4); NEUTROPHILS ABSOLUTE AUTO 4.43 K/mm3 (1.96-9.15); NEUTROPHILS PERCENT AUTO 64 % (41-73); Platelet Count 318 K/mm3 (150-400); RDW Coefficient Variation 11.9 % (11.7-14.2); RDW Standard Deviation 39.4 fL (35.1-46.3); Red Blood Cell Count 3.98 M/mm3 (3.80-5.20); White Blood Cell Count 6.89 K/mm3 (4.00-11.30)
[2022-10-31 15:51] LABS: Anion Gap 8 mmol/L (6-16); Blood Urea Nitrogen 30 mg/dL (8-24); Bun/Creatinine Ratio 56.6 (12.0-20.0); CHOL/HDL RATIO 3.7; CO2, Blood 24 mmol/L (21-32); Calcium, Blood 9.7 mg/dL (8.5-10.1); Chloride, Blood 106 mmol/L (98-108); Cholesterol 235 mg/dL (50-200); Creatinine, Blood 0.53 mg/dL (0.40-1.00); Ferritin, Serum 61 ng/mL (8-252); Glomerular Filtration Rate 104 (60-); Glucose, Blood 114 mg/dL (70-99); HDL Cholesterol 63 mg/dL (>39); LDL/HDL RATIO 2.3; Low Density Lipoprotein Chol 145 mg/dL (0-110); Potassium, Blood 3.9 mmol/L (3.5-5.5); Sodium, Blood 138 mmol/L (136-145); Triglycerides 135 mg/dL (30-160); Very Low Density Lipoprot Chol 27 mg/dL (6-32)
== END | disposition home or self-care (01) ==
LOC: LAB SHORT 13:28
PROVIDERS: Nurse Practitioner Family
DX: E78.5 Hyperlipidemia, unspecified (principal); D50.9 Iron deficiency anemia, unspecified; I10 Essential (primary) hypertension; R73.01 Impaired fasting glucose; R79.89 Other specified abnormal findings of blood chemistry
CPT/HCPCS: 80048; 80061; 82728; 83036; 85025

== ENCOUNTER 2022-11-07 14:36 | Day surgery (SDC) | payer OTHER ==
[~2022-11-07] VITALS: Ht 162.6 cm; Wt 172.6 kg
--- NOTE | 2022-11-07 15:46 | NUR ---
11/07/22 1546 Luna Joshi IN AT 1529 FREDDY IN AT 1532
== END 2022-11-07 16:45 | disposition home or self-care (01) ==
LOC: ORSCSDS 14:36
PROVIDERS: Ophthalmology
PROC: 08933ZZ Drainage of Left Anterior Chamber, Percutaneous Approach (ICD-10-PCS; 2022-11-07)
PROC: 08DK3ZZ Extraction of Left Lens, Percutaneous Approach (ICD-10-PCS; principal; 2022-11-07 16:00)
DX: H25.12 Age-related nuclear cataract, left eye (principal); Z79.899 Other long term (current) drug therapy; I10 Essential (primary) hypertension; G47.33 Obstructive sleep apnea (adult) (pediatric); I73.9 Peripheral vascular disease, unspecified; K21.9 Gastro-esophageal reflux disease without esophagitis; F41.8 Other specified anxiety disorders
CPT/HCPCS: J2001; J2250; J3010; J3301; J7040; V2632

== ENCOUNTER → 2023-02-20 | Outpatient (CLI) | payer OTHER ==
[2023-02-20 15:39] LABS: U Amphetamine Screen Not Detected; U Barbituate Screen Not Detected; U Benzodiazapine Screen Not Detected; U Buprenorphine Screen Not Detected; U Cannabinoids Screen Not Detected; U Cocaine Screen Not Detected; U Methadone Screen Not Detected; U Methamphetamine Screen Not Detected; U Opiates Screen Not Detected; U Oxycodone Screen Not Detected; U Phencyclidine Screen Not Detected; U Propoxyphene Screen Not Detected
== END | disposition home or self-care (01) ==
LOC: LAB SHORT 13:10 → LAB 13:10
PROVIDERS: Internal Medicine Critical Care Medicine
DX: R40.0 Somnolence (principal)

== ENCOUNTER → 2023-04-30 | Outpatient (CLI) | payer OTHER ==
[2023-04-30 20:20] LABS: Albumin, Blood 3.8 g/dL (3.4-5.0); Albumin/Globulin Ratio 1.1 (0.8-1.8); Bilirubin, Total 0.2 mg/dL (0.1-1.0); Bun/Creatinine Ratio 41.2 (12.0-20.0); Calcium, Blood 9.6 mg/dL (8.5-10.1); Creatinine, Blood 0.66 mg/dL (0.40-1.00); Free Thyroxine 0.84 ng/dL (0.70-1.60); Globulin, Blood 3.4 g/dL (2.2-4.0); Potassium, Blood 4.1 mmol/L (3.5-5.5); Thyroid Stimulating Hormone 0.997 uIU/mL (0.360-4.800); Total Protein, Blood 7.2 g/dL (6.4-8.2); Triiodothyronine, Free 2.22 pg/mL (2.18-3.98)
== END ==
LOC: LAB 16:40 → LAB SHORT 16:40
PROVIDERS: Nurse Practitioner Family
DX: I10 Essential (primary) hypertension (principal); E07.9 Disorder of thyroid, unspecified; D50.9 Iron deficiency anemia, unspecified
CPT/HCPCS: 80053; 82728; 83540; 83550; 84439; 84443; 84481

== ENCOUNTER 2023-07-16 11:57 | Emergency (ER) | payer OTHER ==
[~2023-07-16] VITALS: Ht 160 cm; Wt 77.1 kg
[2023-07-16 12:05] VITALS: BP 154/90
== END 2023-07-16 12:30 | disposition home or self-care (01) ==
LOC: ER 11:57
DX: H11.32 Conjunctival hemorrhage, left eye (principal); I10 Essential (primary) hypertension; E78.00 Pure hypercholesterolemia, unspecified; Z85.41 Personal history of malignant neoplasm of cervix uteri; Z88.0 Allergy status to penicillin; Z88.1 Allergy status to other antibiotic agents; Z79.899 Other long term (current) drug therapy
CPT/HCPCS: 99282

== ENCOUNTER 2023-09-10 05:59 | Day surgery (SDC) | payer OTHER ==
[~2023-09-10] VITALS: Ht 160 cm; Wt 80.4 kg
[2023-09-10] MEDS ORDERED: Cyclobenzaprine5 MG (06:38)
[2023-09-10] MEDS ORDERED: MORPHINE SULFAT15 M1 PO (06:38)
--- NOTE | 2023-09-10 07:14 | NUR ---
09/10/23 0714 Kate Hilario MAX, SPIDER, WEDGE, RIGHT ARM BOARD, GELX4, RIGHT ARM SECURED ON PADDED ARM BOARD.
--- NOTE | 2023-09-10 07:48 | NUR ---
09/10/23 0748 [facility] REQUESTED CLARIFICATION FOR ROCEPHIN ORDER BY DR BA D/T PT ALLERGY TO PCN AND KEFLEX, RN CONFIRMED ORDER FOR ROCEPHIN WITH DR BA GIVEN PT ALLERGY, NOTIFIED DR AB THAT DURING HER LAST TOTAL SHOULDER PT WAS GIVEN CLINDA 900. DR BA CONFIRMED REACTION TO KEFLEX AND PCN WITH RN, RN STATED REACTION IS RASH REPORTED BY PT. PER DR BA, CONTINUE WITH ROCEPHIN. RN NOTIFIED PHARMACY, ABX PICKED UP FROM PHARMACY BY THIS RN, TAKEN TO OR FOR USE.
--- NOTE | 2023-09-10 10:29 | NUR ---
09/10/23 1029 SANTY RAMOS PT C/O NAUSEA. SCOPE PATCH APPLIED. REGLAN GIVEN IV OVER 3 MINUTES. PT ON BEDPAN. REMINDING PT TO TAKE DEEP BREATH.
--- NOTE | 2023-09-10 11:04 | NUR ---
09/10/23 1104 SANTY RAMOS 1035 XRAY FOR MARK/Y VIEW. PT STATES CONTINUED NAUSEA. PT DESATS FREQUENTLY TO 89% ON RA. PLACED BACK ON O2 @ 5L. CURRENTLY 100% ON 5L
[2023-09-10 11:22] VITALS: BP 127/73
== END 2023-09-10 12:35 | disposition home or self-care (01) ==
LOC: ORSCSDS 05:59
PROVIDERS: Orthopaedic Surgery
PROC: 0RRK0JZ Replacement of Left Shoulder Joint with Synthetic Substitute, Open Approach (ICD-10-PCS; principal; 2023-09-10 07:30)
DX: M19.012 Primary osteoarthritis, left shoulder (principal); Z96.611 Presence of right artificial shoulder joint; G47.33 Obstructive sleep apnea (adult) (pediatric); F41.8 Other specified anxiety disorders; F32.A Depression, unspecified; I10 Essential (primary) hypertension; Z85.41 Personal history of malignant neoplasm of cervix uteri; Z79.899 Other long term (current) drug therapy; Z68.33 Body mass index [BMI] 33.0-33.9, adult
CPT/HCPCS: 73030; A9270; C1713; C1776; J0171; J0696; J1100; J2250; J2405; J2704; J2765; J3010; J3370; J7120

== ENCOUNTER → 2024-05-20 | Outpatient (CLI) | payer OTHER ==
[~2024-05-20] MED LIST changes: +CONEST1.25; +Cyclobenzaprine5 MG; +OXYACE7.5T; +PROG100
[2024-05-20 13:43] LABS: BASOPHILS ABSOLUTE AUTO 0.03 K/mm3 (0.00-0.23); BASOPHILS PERCENT AUTO 1 % (0-2); EOSINOPHILS ABSOLUTE AUTO 0.03 K/mm3 (0.00-0.68); EOSINOPHILS PERCENT AUTO 1 % (0-6); Hematocrit 33.9 % (33.0-51.0); Hemoglobin 11.4 g/dL (11.5-16.0); IMMATURE GRAN ABSOLUTE AUTO 0.01 K/mm3 (0.00-0.10); IMMATURE GRAN PERCENT AUTO 0 % (0-1); LYMPHOCYTES ABSOLUTE AUTO 1.61 K/mm3 (0.84-5.20); LYMPHOCYTES PERCENT AUTO 36 % (21-46); MONOCYTES ABSOLUTE AUTO 0.33 K/mm3 (0.16-1.47); MONOCYTES PERCENT AUTO 8 % (4-13); Mean Corpuscular HGB 32.9 pg (26.0-34.0); Mean Corpuscular HGB Conc 33.6 g/dL (31.5-36.5); Mean Corpuscular Volume 98 fL (80-100); NEUTROPHILS ABSOLUTE AUTO 2.41 K/mm3 (1.96-9.15); NEUTROPHILS PERCENT AUTO 55 % (41-73); Platelet Count 231 K/mm3 (150-400); RDW Coefficient Variation 12.3 % (11.7-14.2); RDW Standard Deviation 44.8 fL (35.1-46.3); Red Blood Cell Count 3.46 M/mm3 (3.80-5.20); White Blood Cell Count 4.42 K/mm3 (4.00-11.30)
[2024-05-20 13:55] LABS: Albumin, Blood 3.5 g/dL (3.4-5.0); Bilirubin, Total 0.3 mg/dL (0.1-1.0); Bun/Creatinine Ratio 13.5 (12.0-20.0); Calcium, Blood 9.2 mg/dL (8.5-10.1); Creatinine, Blood 0.74 mg/dL (0.40-1.00); Globulin, Blood 3.6 g/dL (2.2-4.0); Potassium, Blood 4.3 mmol/L (3.5-5.5); Total Protein, Blood 7.1 g/dL (6.4-8.2)
== END ==
LOC: LAB 13:39 → LAB SHORT 13:39
PROVIDERS: Physician Assistant Medical
DX: I95.9 Hypotension, unspecified (principal)
CPT/HCPCS: 80053; 85025

== ENCOUNTER → 2024-10-28 | Outpatient (CLI) | payer MEDICARE ==
[2024-10-28 14:33] LABS: BASOPHILS ABSOLUTE AUTO 0.06 K/mm3 (0.00-0.23); BASOPHILS PERCENT AUTO 1 % (0-2); EOSINOPHILS ABSOLUTE AUTO 0.09 K/mm3 (0.00-0.68); EOSINOPHILS PERCENT AUTO 2 % (0-6); Hematocrit 35.2 % (33.0-51.0); Hemoglobin 11.8 g/dL (11.5-16.0); IMMATURE GRAN ABSOLUTE AUTO 0.01 K/mm3 (0.00-0.10); IMMATURE GRAN PERCENT AUTO 0 % (0-1); LYMPHOCYTES ABSOLUTE AUTO 1.76 K/mm3 (0.84-5.20); LYMPHOCYTES PERCENT AUTO 38 % (21-46); MONOCYTES ABSOLUTE AUTO 0.41 K/mm3 (0.16-1.47); MONOCYTES PERCENT AUTO 9 % (4-13); Mean Corpuscular HGB 32.9 pg (26.0-34.0); Mean Corpuscular HGB Conc 33.5 g/dL (31.5-36.5); Mean Corpuscular Volume 98 fL (80-100); Mean Platelet Volume 8.9 fL (9.1-12.4); NEUTROPHILS ABSOLUTE AUTO 2.32 K/mm3 (1.96-9.15); NEUTROPHILS PERCENT AUTO 50 % (41-73); Platelet Count 255 K/mm3 (150-400); RDW Coefficient Variation 11.1 % (11.7-14.2); RDW Standard Deviation 39.8 fL (35.1-46.3); Red Blood Cell Count 3.59 M/mm3 (3.80-5.20); White Blood Cell Count 4.65 K/mm3 (4.00-11.30)
[2024-10-28 15:20] LABS: Anion Gap 8 mmol/L (3-11); Blood Urea Nitrogen 17 mg/dL (8-24); Bun/Creatinine Ratio 29.8 (12.0-20.0); CHOL/HDL RATIO 3.6; CO2, Blood 27 mmol/L (21-32); Calcium, Blood 9.3 mg/dL (8.5-10.1); Chloride, Blood 109 mmol/L (98-108); Cholesterol 198 mg/dL (50-200); Creatinine, Blood 0.57 mg/dL (0.40-1.00); Free Thyroxine 0.81 ng/dL (0.70-1.60); Glomerular Filtration Rate 101 (60-); Glucose, Blood 103 mg/dL (70-99); HDL Cholesterol 55 mg/dL (>39); LDL/HDL RATIO 2.3; Low Density Lipoprotein Chol 124 mg/dL (0-110); Potassium, Blood 4.2 mmol/L (3.5-5.5); Sodium, Blood 140 mmol/L (136-145); Triglycerides 96 mg/dL (30-160); Very Low Density Lipoprot Chol 19 mg/dL (6-32)
== END | disposition home or self-care (01) ==
LOC: LAB 13:27 → LAB SHORT 13:27
PROVIDERS: Nurse Practitioner Family
DX: E78.5 Hyperlipidemia, unspecified (principal); I10 Essential (primary) hypertension; F41.1 Generalized anxiety disorder
CPT/HCPCS: 80048; 80061; 84439; 84443; 85025